=== PATIENT | female | born 1950 | race Caucasian/White ===

== ENCOUNTER 2024-10-28 15:34 | Emergency (ER) | payer MEDICARE, SELFPAY ==
--- NOTE | ~2024-10-28 | XR_ITS ---
XR finger 5th LT min 2V Ordering provider: George Cohne APRN History: . fall 5 days ago, 5th digit pain . Comparison: None. FINDINGS: BONES: Fracture at the base of the proximal phalanx of the left fifth finger with no significant disp lacement. Slight angulation is seen. JOINT SPACES: Narrowing of the proximal and distal interphalangeal joints. SOFT TISSUES: Normal. IMPRESSION: Fracture at the base of the proximal phalanx of the left thumb. Reviewed, dictated and finalized at location A.
--- OUTSIDE RECORDS SUMMARY | 2024-10-28 15:37 | XMS_ITS | Data Portability ---
Author Organization [facility] Address [address] [place] [address] 10 [address] [place] [address] Care Team Providers Care Speech Professor Name Role Phone NOLVIA BLACK Primary Care Provider Assessment Encounter Date Assessment Date Assessment LastModified by Organization Details LastModified Time 06/05/2022 06/05/2022 72-year-old female with left proximal humerus fracture. Plan: Continue in the sling for immobilization. Patient can come out for gentle range of motion fingers wrist elbow and pendulum exercises. We will start PT at this time. Demonstrated exercises for patient to do. Continue with rest and icing. Continue no use of her left arm. Discussed that swelling and dull aching pains or rest, elevate, ice, take [id number] Tylenol or pain medication. Patient agrees verbal consent was given for return to clinic 4 weeks x-rays left shoulder. Not available 06/05/2022 15:30:14 06/20/2022 06/20/2022 caring for her at home Patient presented to office today for their Medicare Annual Wellness Visit. Education was provided on healthy nutrition, including a diet rich in fruits and vegetables, minimizing simple carbohydrates, sale and saturated fats. Encouraged regular cardiovascular exercises such as walking at least 30 mins daily at least 5 times per week. Emphasized preventative health measures and educated patient on fall prevention and community-based lifestyle interventions to help reduce health risk and promote healthy living. printed and reviewed labs Not available 06/20/2022 12:56:04 07/10/2022 07/10/2022 72-year-old female with left proximal humerus fracture. Plan: Continue physical therapy at this time. Long discussion with the patient today about what to do about her shoulder. She would like to avoid surgery at all cost. Advised her that at 9 weeks post injury it is still too early to tell. Continue therapy to see if we can regain any motion and decrease her pain. If this is not better within the next month and we we will have to discuss further surgical intervention for her shoulder. Discussed that swelling and dull aching pains or rest, elevate, ice, take [id number] Tylenol or pain medication. Pain medication given to the patient. Patient agrees verbal consent was given for return to clinic 4 weeks x-rays left shoulder. Not available 07/10/2022 16:55:31 Plan of Treatment Reminders Order Date Submit Date Provider Last Modified By Organization Details Last Modified Time Details Appointments None recorded. Lab HbA1c (hemoglobin A1c), blood 2022 023 [facility] (Outpatient Lab), [address] [place], [address], 3 15:38:08 microalbumi n/creatinin e, mass ratio, urine 2022 023 [facility] (Outpatient Lab), [address] [place], [address], 3 15:38:08 CMP, serum or plasma 2022 023 [facility] (Outpatient Lab), [address] [place], [address], 3 15:38:06 CBC w/ auto diff 2022 023 [facility] (Outpatient Lab), [address] [place], [address], 3 15:38:08 TSH, serum or plasma 2022 023 [facility] (Outpatient Lab), [address] [place], [address], 3 15:38:07 magnesium, serum or plasma 2022 023 [facility] (Outpatient Lab), [address] [place], [address], 3 15:38:08 lipid panel, serum 2022 023 [facility] (Outpatient Lab), [address] [place], [address], 3 15:38:07 HbA1c (hemoglobin A1c), blood 2021 022 [facility] (Outpatient Lab), [address] [place], [address], 2 12:56:22 microalbumi n/creatinin e, mass ratio, urine 2021 022 [facility] (Outpatient Lab), [address] [place], [address], 2 12:56:22 CMP, serum or plasma 2021 022 [facility] (Outpatient Lab), [address] [place], [address], 2 12:56:23 CBC w/ auto diff 2021 022 [facility] (Outpatient Lab), [address] [place], [address], 2 12:56:22 TSH, serum or plasma 2021 022 [facility] (Outpatient Lab), [address] [place], [address], 2 12:56:23 magnesium, serum or plasma 2021 022 [facility] (Outpatient Lab), [address] [place], [address], 2 12:56:21 lipid panel, serum 2021 022 [facility] (Outpatient Lab), [address] [place], [address], 12:56:22 Referral physical therapist referral 2021 [facility], [address] [place], [address], 17:17:09 Procedures None recorded. Surgeries None recorded. Imaging XR, shoulder 2022 023 In-House Results, For Internal Use Only, Do Not Delete/merge, [id number] 3 14:32:23 XR, shoulder 2021 022 In-House Results, For Internal Use Only, Do Not Delete/merge, [id number] 16:55:33 XR, shoulder 2021 022 [facility] In-House Results, For Internal Use Only, Do Not Delete/merge, [id number] 16:50:29 Medication Orders rosuvastati n 40 mg tablet 2022 023 [facility] [place], [address], 3 15:38:01 magnesium 250 mg tablet 2022 023 [facility], [place], [address], 3 15:38:01 Trulicity 3 mg/0.5 mL subcutaneou s pen injector 2022 023 [facility], [place], [address], 3 15:37:58 duloxetine 60 mg capsule,del ayed release 2022 023 [facility], [place], [address], 3 15:37:58 omeprazole 20 mg capsule,del ayed release 2022 023 [facility], [facility], [place], [address], 3 15:37:59 losartan 100 mg tablet 2022 023 [facility], [facility], [place], [address], 3 15:38:03 levothyroxi ne 100 mcg tablet 2022 023 [facility], [facility], [place], [address], 3 15:37:59 Cymbalta 60 mg capsule,del ayed release 2021 022 [facility], [address] [place] [address], [address], 12:56:24 Patient TargetsNo targets recorded. Patient Instructions Encounter Date Encounter Id Patient Instructions Last Modified By Organization Details Last Modified Time 06/05/2022 [id number] body mass index: care instructions Not available 06/05/2022 15:30:15 learning about obesity Not available 06/05/2022 15:30:15 When You Want to Lose Weight: Care Instructions Not available 06/05/2022 15:30:16 06/20/2022 [id number] advance directives: care instructions [email or web address] Not available 06/20/2022 12:56:16 body mass index: care instructions [email or web address] Not available 06/20/2022 12:56:16 learning about obesity [email or web address] Not available 06/20/2022 12:56:16 When You Want to Lose Weight: Care Instructions [email or web address] Not available 06/20/2022 12:56:16 Learning About Benefits of Quitting Smoking [email or web address] Not available 06/20/2022 12:56:16 Quitting Tobacco : Care Instructions Not available 06/20/2022 12:56:16 Checklist Medicare Preventive Services [email or web address] Not available 06/20/2022 12:56:16 07/10/2022 [id number] body mass index: care instructions Not available 07/10/2022 16:55:32 learning about obesity Not available 07/10/2022 16:55:33 When You Want to Lose Weight: Care Instructions Not available 07/10/2022 16:55:33 08/07/2022 [id number] learning about healthy weight Not available 08/07/2022 14:32:22 body mass index: care instructions Not available 08/07/2022 14:32:23 learning about obesity Not available 08/07/2022 14:32:22 When You Want to Lose Weight: Care Instructions Not available 08/07/2022 14:32:22 12/31/2022 [id number] body mass index: care instructions [email or web address] Not available 12/31/2022 15:37:55 learning about obesity Not available 12/31/2022 15:37:54 When You Want to Lose Weight: Care Instructions [email or web address] Not available 12/31/2022 15:37:55 Learning About Benefits of Quitting Smoking [email or web address] Not available 12/31/2022 15:37:54 Quitting Tobacco : Care Instructions [email or web address] Not available 12/31/2022 15:37:54 Reason for Referral Physical Therapist Referral for Closed fracture of proximal left humerus Referring Physician: Yadira Silverman, Orthopedic Surgery, Encounter Date: 06/05/2022 Results Created Date Observation Date Name Description Value Unit Range Abnormal Flag Note LastModifiedBy Organization Detail LastModifiedTime 06/05/20 22 06/05/2022 COMPL ETE BLOOD COUNT AUTO DIFF leukocytes [#/volume] in blood by automated count 8.8 X10^3 /uL 4.5-11 .0 normal Not Available [facility] (Outpatient Lab) [address] [place], [address], 06/05/2022 16:18:09 06/05/20 22 06/05/2022 COMPL ETE BLOOD COUNT AUTO DIFF erythrocytes [#/volume] in blood by automated count 4.71 x10^6 /uL 3.8-5. 2 normal Not Available [facility] (Outpatient Lab) [address] [place], [address], 06/05/2022 16:18:09 06/05/20 22 06/05/2022 COMPL ETE BLOOD COUNT AUTO DIFF hemoglobin [mass/volume ] in blood 14.2 gm/dL 11.7-1 6.1 normal Not Available [facility] (Outpatient Lab) [address] [place], [address], 06/05/2022 16:18:09 06/05/20 22 06/05/2022 COMPL ETE BLOOD COUNT AUTO DIFF hematocrit [volume fraction] of blood 41.8 % 35.0-4 7.0 normal Not Available [facility] (Outpatient Lab) [address] [place], [address], 06/05/2022 16:18:09 06/05/20 22 06/05/2022 COMPL ETE BLOOD COUNT AUTO DIFF MCV [entitic volume] by automated count 88.7 fL 81.0-1 02.0 normal Not Available [facility] (Outpatient Lab) [address] [place], [address], 06/05/2022 16:18:09 06/05/20 22 06/05/2022 COMPL ETE BLOOD COUNT AUTO DIFF MCH [entitic mass] by automated count 30.1 pg 27.0-3 5.0 normal Not Available [facility] (Outpatient Lab) [address] [place], [address], 06/05/2022 16:18:09 06/05/20 22 06/05/2022 COMPL ETE BLOOD COUNT AUTO DIFF MCHC [mass/volume ] by automated count 34.0 g/dL 32.0-3 6.0 normal Not Available [facility] (Outpatient Lab) [address] [place], [address], 06/05/2022 16:18:09 06/05/20 22 06/05/2022 COMPL ETE BLOOD COUNT AUTO DIFF erythrocyte distribution width [entitic volume] by automated count 13.9 % 11.5-1 4.5 normal Not Available [facility] (Outpatient Lab) [address] [place], [address], 06/05/2022 16:18:09 06/05/20 22 06/05/2022 COMPL ETE BLOOD COUNT AUTO DIFF platelets [#/volume] in blood by automated count 246 K/mm3 130-40 0 normal Not Available [facility] (Outpatient Lab) [address] [place], [address], 06/05/2022 16:18:09 06/05/20 22 06/05/2022 COMPL ETE BLOOD COUNT AUTO DIFF platelet mean volume [entitic volume] in blood by automated count 10.8 fL 7.4-10 .4 high Not Available [facility] (Outpatient Lab) [address] [place], [address], 06/05/2022 16:18:09 06/05/20 22 06/05/2022 COMPL ETE BLOOD COUNT AUTO DIFF neutrophils/ 100 leukocytes in blood by automated count 65.8 % 50.0-7 0.0 normal Not Available [facility] (Outpatient Lab) [address] [place], [address], 06/05/2022 16:18:09 06/05/20 22 06/05/2022 COMPL ETE BLOOD COUNT AUTO DIFF lymphocytes/ 100 leukocytes in blood by automated count 21.9 % 18.0-4 2.0 normal Not Available [facility] (Outpatient Lab) [address] [place], [address], 06/05/2022 16:18:09 06/05/20 22 06/05/2022 COMPL ETE BLOOD COUNT AUTO DIFF monocytes/10 0 leukocytes in blood by automated count 7.9 % 2.0-11 .0 normal Not Available [facility] (Outpatient Lab) [address] [place], [address], 06/05/2022 16:18:09 06/05/20 22 06/05/2022 COMPL ETE BLOOD COUNT AUTO DIFF eosinophils/ 100 leukocytes in blood by automated count 3.5 % 1.0-5. 0 normal Not Available [facility] (Outpatient Lab) [address] [place], [address], 06/05/2022 16:18:09 06/05/20 22 06/05/2022 COMPL ETE BLOOD COUNT AUTO DIFF basophils/10 0 leukocytes in blood by automated count 0.7 % 0.0-2. 0 normal Not Available [facility] (Outpatient Lab) [address] [place], [address], 06/05/2022 16:18:09 06/05/20 22 06/05/2022 COMPL ETE BLOOD COUNT AUTO DIFF immature granulocytes /100 leukocytes in blood by automated count 0.2 % 0-1 normal Not Available [facility] (Outpatient Lab) [address] [place], [address], 06/05/2022 16:18:09 06/05/20 22 06/05/2022 COMPL ETE BLOOD COUNT AUTO DIFF nucleated erythrocytes [#/volume] in blood by automated count 0.00 K/mm3 Not Available [facility] (Outpatient Lab) [address] [place], [address], 06/05/2022 16:18:09 06/05/20 22 06/05/2022 COMPL ETE BLOOD COUNT AUTO DIFF nucleated erythrocytes /100 leukocytes [ratio] in blood by automated count 0.0 /100W BC 0-8 normal Not Available [facility] (Outpatient [facility]) [address] [place], [address], 06/05/2022 16:18:09 06/05/20 22 06/05/2022 COMPL ETE BLOOD COUNT AUTO DIFF neutrophil count 5.80 x10^3 /uL 1.4-6. 5 normal Not Available [facility] (Outpatient [facility]) [address] [place], [address], 06/05/2022 16:18:09 06/05/20 22 06/05/2022 COMPL ETE BLOOD COUNT AUTO DIFF lymphocytes [#/volume] in blood by automated count 1.93 x10^3 /uL 1.2-3. 4 normal Not Available [facility] (Outpatient [facility]) [address] [place], [address], 06/05/2022 16:18:09 06/05/20 22 06/05/2022 COMPL ETE BLOOD COUNT AUTO DIFF monocytes [#/volume] in blood by automated count 0.70 x10^3 /uL 0.11-0 .59 high Not Available [facility] (Outpatient Lab) [address] [place], [address], 06/05/2022 16:18:09 06/05/20 22 06/05/2022 COMPL ETE BLOOD COUNT AUTO DIFF eosinophils [#/volume] in blood by automated count 0.31 x10^3 /uL 0.0-0. 5 normal Not Available [facility] (Outpatient Lab) [address] [place], [address], 06/05/2022 16:18:09 06/05/20 22 06/05/2022 COMPL ETE BLOOD COUNT AUTO DIFF basophils [#/volume] in blood by automated count 0.06 x10^3 /uL 0.00-0 .2 normal Not Available [facility] (Outpatient Lab) [address] [place], [address], 06/05/2022 16:18:09 06/05/20 22 06/05/2022 COMPL ETE BLOOD COUNT AUTO DIFF immature granulocytes [#/volume] in blood by automated count 0.02 x10^3 /uL 0-0.2 normal Not Available [facility] (Outpatient Lab) [address] [place], [address], 06/05/2022 16:18:09 06/05/20 22 06/05/2022 MICRO ALBUM IN CREAT ININE RATIO microalbumin [mass/volume ] in urine by detection limit <= 1.0 mg/L 16.20 mg/L Not Available [facility] (Outpatient Lab) [address] [place], [address], 06/05/2022 16:28:21 06/05/20 22 06/05/2022 MICRO ALBUM IN CREAT ININE RATIO creatinine [mass/volume ] in urine 221.8 mg/dL Effec tive 6, A nellie ed metho d for Creat inine is in use. Not Available [facility] (Outpatient Lab) [address] [place], [address], 06/05/2022 16:28:21 06/05/20 22 06/05/2022 MICRO ALBUM IN CREAT ININE RATIO microalbumin /creatinine [mass ratio] in urine 7.3 mg/g_ cre <30 Not Available [facility] (Outpatient Lab) [address] [place], [address], 06/05/2022 16:28:21 06/05/20 22 06/05/2022 GLYCA SHADIA HEMOG LOBIN A1C hemoglobin A1C/hemoglob in.total in blood 6.3 % 4.8-6. 0 high Not Available [facility] (Outpatient Lab) [address] [place], [address], 06/05/2022 16:40:02 06/05/20 22 06/05/2022 CMP sodium [moles/volum e] in serum or plasma 139 mmol/ L 136-14 5 normal Not Available [facility] (Outpatient Lab) [address] [place], [address], 06/05/2022 16:50:05 06/05/20 22 06/05/2022 CMP potassium [moles/volum e] in serum or plasma 4.0 mmol/ L 3.5-5. 1 normal Not Available [facility] (Outpatient Lab) [address] [place], [address], 06/05/2022 16:50:05 06/05/20 22 06/05/2022 CMP chloride [moles/volum e] in serum or plasma 104 mmol/ L 98-107 normal Not Available [facility] (Outpatient Lab) [address] [place], [address], 06/05/2022 16:50:05 06/05/20 22 06/05/2022 CMP carbon dioxide, total [moles/volum e] in serum or plasma 28.2 mmol/ L 21-32 normal Not Available [facility] (Outpatient Lab) [address] [place], [address], 06/05/2022 16:50:05 06/05/20 22 06/05/2022 CMP anion gap in serum or plasma 6.8 mmol/ L [facility] Labor atory estab lishe d refer ence range for Anion Gap is 4.9-1 1.0 mmol/ L based on our patie nt popul ation and using Sieme ns Dimen elisa instr ument ation . Not Available [facility] (Outpatient Lab) [address] [place], [address], 06/05/2022 16:50:05 06/05/20 22 06/05/2022 CMP urea nitrogen [mass/volume ] in serum or plasma 14 mg/dL 7-18 normal Not Available [facility] (Outpatient [facility]) [address] [place], [address], 06/05/2022 16:50:05 06/05/20 22 06/05/2022 CMP creatinine [mass/volume ] in serum or plasma 0.73 mg/dL 0.55-1 .02 normal Not Available [facility] (Outpatient Lab) [address] [place], [address], 06/05/2022 16:50:05 06/05/20 22 06/05/2022 CMP protein [mass/volume ] in serum or plasma 7.0 g/dL 6.4-8. 2 normal Not Available [facility] (Outpatient Lab) [address] [place], [address], 06/05/2022 16:50:05 06/05/20 22 06/05/2022 CMP albumin [mass/volume ] in serum or plasma 3.5 g/dL 3.4-5. 0 normal Not Available [facility] (Outpatient Lab) [address] [place], [address], 06/05/2022 16:50:05 06/05/20 22 06/05/2022 CMP globulin [mass/volume ] in serum by calculation 3.5 g/dL 2.7-4. 2 normal Not Available [facility] (Outpatient Lab) [address] [place], [address], 06/05/2022 16:50:05 06/05/20 22 06/05/2022 CMP albumin/glob ulin [mass ratio] in serum or plasma 1.0 1.1-2. 0 low Not Available [facility] (Outpatient Lab) [address] [place], [address], 06/05/2022 16:50:05 06/05/20 22 06/05/2022 CMP bilirubin.to lisa [mass/volume ] in serum or plasma 0.43 mg/dL 0.20-1 .00 normal Not Available [facility] (Outpatient Lab) [address] [place], [address], 06/05/2022 16:50:05 06/05/20 22 06/05/2022 CMP alkaline phosphatase [enzymatic activity/vol ume] in serum or plasma 123 U/L 46-116 high Not Available [facility] (Outpatient Lab) [address] [place], [address], 06/05/2022 16:50:05 06/05/20 22 06/05/2022 CMP aspartate aminotransfe rase [enzymatic activity/vol ume] in serum or plasma 13 U/L 15-37 low Not Available [facility] (Outpatient Lab) [address] [place], [address], 06/05/2022 16:50:05 06/05/20 22 06/05/2022 CMP calcium [mass/volume ] in serum or plasma 9.1 mg/dL 8.5-10 .1 normal Not Available [facility] (Outpatient Lab) [address] [place], [address], 06/05/2022 16:50:05 06/05/20 22 06/05/2022 CMP glucose [mass/volume ] in serum or plasma 110 mg/dL 70-110 normal Not Available [facility] (Outpatient Lab) [address] [place] [address], [address], 06/05/2022 16:50:05 06/05/20 22 06/05/2022 CMP alanine aminotransfe rase [enzymatic activity/vol ume] in serum or plasma 18 U/L 14-59 normal Not Available [facility] (Outpatient Lab) [address] [place] [address], [address], 06/05/2022 16:50:05 06/05/20 22 06/05/2022 CMP glomerular filtration rate/1.73 sq M.predicted [volume rate/area] in serum, plasma or blood by creatinine-b ased formula (MDRD) >=60 Calcu latio n is based on serum creat inine , age, gende r and race using the MDRD equat ion. The estim ated GFR calcu latio n alone can be used to diagn ose and class jerri patie nts in stage s 3,4 and 5 of chron ic kidne y disea se as indic ated by an estim ated GFR <= 59ml/ min/1 .73m2 . The diagn osis of patie nts in stage s 1 or 2 is prima rily based on signs of kidne y damag e, such as the prese nce of micro album inuri a. All eGFR value s great er than 59 will be repor shadia as >=60 ml/mi n/1.7 3m2 follo wing NKF and NKDEP recom menda tions . For more infor fuad navarrete e refer to the Shelia mahan Kidregina y Disea se Educa tion Progr am at: http: //www .nkde p.nih .gov. Not Available [facility] (Outpatient Lab) [address] [place] [address], [address], 06/05/2022 16:50:05 06/05/20 22 06/05/2022 LIPID PROFI LE cholesterol [mass/volume ] in serum or plasma 87 mg/dL 0-200 normal Not Available [facility] (Outpatient Lab) [address] [place] [address], [address], 06/05/2022 16:50:06 06/05/20 22 06/05/2022 LIPID PROFI LE triglyceride [mass/volume ] in serum or plasma 98 mg/dL 30-200 normal Not Available [facility] (Outpatient Lab) [address] [place] [address], [address], 06/05/2022 16:50:06 06/05/20 22 06/05/2022 LIPID PROFI LE cholesterol in HDL [mass/volume ] in serum or plasma 49 mg/dL 35-60 normal Not Available [facility] (Outpatient Lab) [address] [place] [address], [address], 06/05/2022 16:50:06 06/05/20 22 06/05/2022 LIPID PROFI LE cholesterol in LDL [mass/volume ] in serum or plasma by calculation 18 mg/dL Not Available [facility] (Outpatient Lab) [address] [place] [address], [address], 06/05/2022 16:50:06 06/05/20 22 06/05/2022 MAGNE SIUM magnesium [mass/volume ] in serum or plasma 1.7 mg/dL 1.8-2. 4 low Not Available [facility] (Outpatient Lab) [address] [place], [address], 06/05/2022 16:50:07 06/05/20 22 06/05/2022 THYRO ID STIMU LATIN G HORMO NE thyrotropin [units/volum e] in serum or plasma 1.766 uIU/m L 0.358- 3.74 normal PLEAS E NOTE: The inges tion of dieta ry suppl ement s conta ining exces sive amoun ts of bioti n may false ly decre ase TSH resul ts. Not Available [facility] (Outpatient Lab) [address] [place] [address], [address], 06/05/2022 16:50:07 06/05/20 22 06/05/2022 FREE THYRO XINE (T4) thyroxine (T4) free [mass/volume ] in serum or plasma 1.32 NG/dL 0.76-1 .46 normal PLEAS E NOTE: The inges tion of dieta ry suppl ement s conta ining exces sive amoun ts of bioti n may false ly incre ase free T4 resul ts. Not Available [facility] (Outpatient Lab) [address] [place] [address], [address], 06/05/2022 16:50:08 06/05/20 22 06/05/2022 VITAM IN B12 AND FOLAT E cobalamin (vitamin B12) [mass/volume ] in serum or plasma 266 pg/mL 193-98 6 normal PLEAS E NOTE: The inges tion of dieta ry suppl ement s conta ining exces sive amoun ts of bioti n may false ly incre ase B12 resul ts. Not Available [facility] (Outpatient Lab) [address] [place] [address], [address], 06/05/2022 16:57:12 06/05/20 22 06/05/2022 VITAM IN B12 AND FOLAT E folate [mass/volume ] in serum or plasma 14.9 NG/mL 8.6-58 .9 normal PLEAS E NOTE: The inges tion of dieta ry suppl ement s conta ining exces sive amoun ts of bioti n may false ly incre ase folat e resul ts. Not Available [facility] (Outpatient Lab) [address] [place], [address], 06/05/2022 16:57:12 06/05/20 22 06/05/2022 VITAM IN D 25-HY DROXY 25-hydroxyvi tamin D3+25-hydrox yvitamin D2 [mass/volume ] in serum or plasma 46.8 NG/mL 30.0-1 00.0 Vitam in D defic iency has been defin ed by the Insti tute of Medic ine and an Endoc rine Socie ty pract ice guide line as a level of serum 25-OH vitam in D less than 20 ng/mL (1,2) . The Endoc rine Socie ty went on to furth er defin e vitam in D insuf ficie ncy as a level betwe en 21 and 29 ng/mL (2). 1. IOM (Inst itute of Medic ine). 2009. Dieta ry refer ence intak es for calci um and D. Lior lopez [place]: The Natio nal [facility] Press . 2. Abida song [place], Isidro german [place], Medardo off-F maria luisa i JUAREZ, et al. Evalu ation , treat ment, and preve ntion of vitam in D defic iency : an Endoc rine Socie ty clini jeffrey pract ice guide line. JCEM. 2010; 96(7) :1911 -30. Perfo rmed at: 01 - [facility] [id number] [place] [address] Lab Direc tor: Jc chauhan PhD, Phone : [phone] Not Available [facility] (Outpatient Lab) [address] [place], [address], 06/08/2022 06:50:35 05/15/20 22 05/15/2022 XR, sabine jennifer No observ ation record ed. In-House Results For Internal Use Only, Do Not Delete/merge, [id number] 05/15/2022 12:05:16 06/05/20 22 06/05/2022 XR, shoul jennifer No observ ation record ed. 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 This scan was perfor med with dose reduct ion protoc ol follow ing the ALARA princi ple. Low-do se screen ing CT of the chest is perfor med accord ing to the low-do se screen ing protoc ol. 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 No suspic ious pulmon nancy nodule s are demons trated . I would recomm end follow -up low-do se screen ing CT in 12 months . IMPRES ELISA: Lung-R ADS 1 - Negati ve. No nodule s and defini tely benign nodule s. Contin ue annual screen ing with LDCT in 12 months . *Lung- RADS versio n 1.1 (nellie ed ) Review ed and electr onical ly signed by: Abhay Conrad MD REPORT STATUS : Signed DATE TRANSC RIBED: TRANSC RIPTIO NIST: PS DICTAT ION DATE AND TIME: 154 ELECTR ONIC SIGNAT URE DATE AND TIME: 1549 cc: NOLVIA BLACK MD [email or web address] [facility] [address] [place] [address], [address], 07/04/2022 12:01:24 07/10/20 22 07/10/2022 XR, shoul jennifer No observ ation record ed. In-House Results For Internal Use Only, Do Not Delete/merge, [id number] 07/10/2022 16:55:56 08/07/19 23 08/07/2022 XR, shoul jennifer No observ ation record ed. In-House Results For Internal Use Only, Do Not Delete/merge, [id number] 08/07/2022 14:32:20 10/04/19 23 06/01/2022 bone densi ty No observ ation record ed. [facility] [id number] , [place], [address], 10/03/2022 13:50:31 Result Notes None recorded. Problems Name Problem SNOMED Code Status Onset Date Resolution Date Notes Provider Name and Address Organization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 APRN [facility] [address] [address] 01/25/2019 09:47:10 01/25/2019 10:58:06 Screening for malignant neoplasm of colon 496193073 Z12.11 [id number] Nolvia Black MD [facility] [address] [address] 03/05/2019 09:02:46 03/05/2019 10:18:58 Essential hypertension 91465315 I10 controlled on multiple medication s Hyperlipidemia 15062944 E78.2 on rosuvastat in 20mg daily Diabetes mellitus 571476 09 E11.9 on victoza and glimepirid eintoleran t of metformin Hypothyroidism 90934351 E03.9 on levothyrox ine 100mcg daily Psoriasis 4914144 L40.9 uses steroid ointment in her earslocate d only in bilateral ears Osteoporosis 90191596 M8 1.0 requesting bone density records from [facility] Obstructiv e sleep apnea syndrome 02943122 G47.33 wears cpap nightly Adult heal th examination 452495867 Z00.00 mammogram normal 10/30h/o hysterecto my with normal pathologyc olonoscopy scheduled for next weekbone density done 10/1949 year smoking history quit 10/30--she is considerin g CT scan for lung cancerAAA screen is ordered through [facility] [id number] Nolvia Black MD [facility] [address] [place] [address] [address] [place] [address] 07/05/2019 10:13:47 07/05/2019 11:24:14 Diabetes mellitus 84411897 E11.9 on victoza and glimepirid eintoleran t of metformina 1c 7.6 on 03/05/19foo t examinatio n 07/05/19 showed sensation loss in ball of footeye examinatio n 06/2019 Essential hypertension 97326230 I10 controlled on multiple medication sshe wants to minimize medication swill try stopping spironolac tone and she will monitor her blood pressure at home Mixed hyperlipidemia 267 812399 E78.2 on rosuvastat in 20mg dailyLDL 20 on 03/05/19 Hepatitis C screening 39 3128008 Z11.59 Age relate d macular degeneration 128527753 H35.30 wet on left side and getting injections Hyperlipidemia 39298842 E78.2 on rosuvastat in 20mg daily Hypothyroidism 50165925 E03.9 on levothyrox ine 100mcg dailythyro id studies normal 02/2019 Psoriasis 1272729 L40.9 uses steroid ointment in her earslocate d only in bilateral ears Osteoporosis 49275176 M8 1.0 [facility] 03/05/19 Obstructiv e sleep apnea syndrome 56938896 G47.33 wears cpap nightly Adult [facility] th examination 676142360 Z00.00 mammogram normal 10/30h/o hysterecto my with normal pathologyc olonoscopy 04/09/19 normal, repeat in 10 yearsbone density done 10/1949 year smoking history quit 10/30--she is considerin g CT scan for lung cancerAAA screen is ordered through [facility] Chronic ob structive pulmonary disease 48004636 J44.9 [id number] MD [place] [facility] [address] [place] [address] [address] 09/22/2019 13:46:12 09/22/2019 14:14:13 History of total knee arthroplasty 1914273843 105 Z96.652 69-year-ol d female left total knee arthroplas ty couple years ago doing well no issues or problems. Plan activity as tolerated. Follow-up 1 year repeat evaluation routine checkup left total knee. [id number] Arnav [facility] [address] [place] [address] 11/29/2019 11:46:35 11/29/2019 14:44:59 Eczema of external auditory canal 52260176 H60.543 Left side much worse than right Impacted cerumen 4970430 6 H61.23 Right side worse than left today [id number] MD [facility] [address] [place] [address] [address] 01/07/2020 11:58:58 01/07/2020 13:14:39 Diabetes mellitus 17797365 E11.9 on victoza and glimepirid eintoleran t of metformina 1c 7.6 on 03/05/19a1c 8.1 on 01/05/2020, she has been eating more sweets and missing doses of victozafoo t examinatio n 07/05/19 showed sensation loss in ball of footeye examinatio n 06/2019 Essential hypertension 12349028 I10 controlled on amlodipine , carvedilol , clonidine, and losartan Mixed hyperlipidemia 267 581896 E78.2 on rosuvastat in 20mg dailyLDL 24 01/05/2020 Age relate d macular degeneration 373548817 H35.30 wet on left side and getting injections Hyperlipidemia 17784316 E78.2 on rosuvastat in 20mg dailyLDL 24 on 01/05/2020 Hypothyroidism 68524107 E03.9 on levothyrox ine 100mcg dailythyro id studies normal 02/2019 Psoriasis 6747584 L40.9 uses steroid ointment in her earslocate d only in bilateral ears Osteoporosis 51123392 M8 1.0 [facility] 03/05/19 Obstructiv e sleep apnea syndrome 41463816 G47.33 wears cpap nightly Adult heal th examination 593840236 Z00.00 mammogram normal 10/30, [facility] with normal pathologyc olonoscopy 04/09/19 normal, repeat in 10 yearsbone density done 10/30 showed osteopenia 50 year smoking history quit 10/30--she is considerin g CT scan for lung cancerAAA screen is ordered through [facility] Chronic ob structive pulmonary disease 10653226 J44.9 PFTs 07/09/2019 :Optimal study for interpreta tion. Spirometry shows mild obstructio n. There is no significan t bronchodil ator response. Diffusion Capacity is mildly reduced. No comparison studies. discussed smoking cessation, restart chantix Smoker 59028440 F17.200 former smoker but she resumed with recent1/2 PPD restartedd iscussed smoking cessation for 3 minutes Screening for malignant neoplasm of breast 331044659 Z12.31 Depressive disorder 3548 9007 F32.9 PHQ-9 score 14 on cymbalta 01/07/2020s top cymbalta and start sertraline titrating up as neededshe declined therapy at this time [id number] Nolvia Black MD [facility] [address] [place] [address] 03/03/2020 10:32:52 03/03/2020 11:52:32 Depressive disorder 83265047 F32.9 PHQ-9 score 14 on cymbalta 01/07/2020s ertraline 50mg daily helping alot Diabetes mellitus 329412 09 E11.9 on victoza and glimepirid eintoleran t of metformina 1c 7.6 on 03/05/19a1c 8.1 on 01/05/2020, she has been eating more sweets and missing doses of victoza about 3 daysfoot examinatio n 07/05/19 showed sensation loss in ball of footeye examinatio n 06/2019 will switch to ozempic if insurance covers due to once weekly dosing Essential hypertension 32667406 I10 controlled on amlodipine , carvedilol , clonidine, and losartan Mixed hyperlipidemia 267 522396 E78.2 on rosuvastat in 20mg dailyLDL 24 01/05/2020 Age relate d macular degeneration 904753012 H35.30 wet on left side and getting injections Hypothyroidism 88085235 E03.9 on levothyrox ine 100mcg dailythyro id studies normal 02/2019 Psoriasis 7136903 L40.9 uses steroid ointment in her earslocate d only in bilateral ears Obstructiv e sleep apnea syndrome 85400130 G47.33 wears cpap nightly Adult heal th examination 404638494 Z00.00 mammogram normal 02/09/2020h /o hysterecto my with normal pathologyc olonoscopy 04/09/19 normal, repeat in 10 yearsbone density done 10/30 showed osteopenia hep C negative 0 year smoking history quit 10/30--she is considerin g CT scan for lung cancer but still wants to waitAAA [facility] Chronic ob structive pulmonary disease 06448543 J44.9 PFTs 07/09/2019 :Optimal study for interpreta tion. Spirometry shows mild obstructio n. There is no significan t bronchodil ator response. Diffusion Capacity is mildly reduced. No comparison studies. discussed smoking cessation, restart chantix Smoker 78599756 F17.200 former smoker but she resumed with recent stress1/2 PPD - 1 PPDchantix ordered Osteopenia 073665132 M85 .80 Vit D normal 03/05/19she is on vit D/calcium bone density 2018, will do next year Administra tion of diphtheria, pertussis, and tetanus vaccine 476889761 Z23 [id number] Nolvia Black MD [facility] [address] [place] [address] [address] [place] [address] 09/04/2020 11:45:10 09/04/2020 12:36:42 Adult health examination 335659974 Z00.00 mammogram normal 02/09/2020h /o hysterecto my with normal pathologyc olonoscopy 04/09/19 normal, repeat in 10 yearsbone density done 10/30 showed osteopenia hep C negative 01/05/20205 0 year smoking history quit 10/30. she declines lung cancer screeningA AA screen is ordered through [facility]. she states they couldn't see through her fat and declines more testing Screening for cardiovascular system disease 952937438 Z13.6 lipid ordered Advance care planning 71 1195514 Z71.89 Depression screening 171 642252 Z13.31 positive Essential hypertension 27238294 I10 controlled on amlodipine , carvedilol , clonidine, and losartan Chronic pain syndrome 37 0320017 G89.4 Depressive disorder 3548 9007 F32.9 continue sertraline and cymbaltash e declines therapywe discussed going outside more and planning a girls trip which she states helps the mostshe denies suicidal ideation/h omicidal Diabetes mellitus 195032 09 E11.9 on victoza and glimepirid eintoleran t of metformina 1c 7.6 on 03/05/19a1c 8.1 on 01/05/2020, she has been eating more sweets and missing doses of victoza about 3 daysfoot examinatio n 07/05/19 showed sensation loss in ball of footeye examinatio n 06/2019ins urance wouldn't cover ozempic wants to see if trulicity is covered bc she can't remember victoza daily Mixed hyperlipidemia 267 205401 E78.2 on rosuvastat in 20mg dailyLDL 24 01/05/2020 Age relate d macular degeneration 089350216 H35.30 wet on left side and getting injections [facility] [place] is diong her injections Hypothyroidism 49404626 E03.9 on levothyrox ine 100mcg dailythyro id studies normal 02/2019 Psoriasis 4440158 L40.9 uses steroid ointment in her earslocate d only in bilateral ears Obstructiv e sleep apnea syndrome 72068090 G47.33 wears cpap nightly Chronic ob structive pulmonary disease 02463646 J44.9 PFTs 07/09/2019 :Optimal study for interpreta tion. Spirometry shows mild obstructio n. There is no significan t bronchodil ator response. Diffusion Capacity is mildly reduced. No comparison studies. discussed smoking cessation, restart chantix Smoker 50103547 F17.200 former smoker but she resumed with recent stressdown to less than 1/2 PPDshe tried chantix which worked for 3 months but no longer working Osteopenia 468916622 M85 .80 Vit D normal 03/05/19she is on vit D/calcium bone density 2017, will do next year Gastroesop hageal reflux disease without esophagitis 940401395 K21.9 on PPI [id number] CLAUDE THURSTON MD [facility] [address] [place] [address] 09/25/2020 13:44:50 09/25/2020 14:36:39 History of total knee arthroplasty 8040281428 105 Z96.652 70-year-ol d female 3 years out from left total knee arthroplas ty doing well does have some laxity of the MCL and some clicking associated with this. Implants with no issues. Plan routine follow-up 1 year repeat evaluation x-rays left knee. [id number] KEREN NESBITT PA-C [facility] [address] [place] [address] 01/19/2021 11:30:41 01/19/2021 13:36:30 Type 2 diabetes mellitus 05821090 E11.9 Discussed patient with PCP Dr. Walters increase Trulicity from 0.75mg weekly to 1.5mg weeklyF/u with Dr. Black as scheduled in February Patient will come in Friday when her next injection is due to make sure she is administer ing properly [id number] Nolvia Black MD [facility] [address] [place] [address] 02/21/2021 14:39:54 02/21/2021 15:50:56 Depressive disorder 15322061 F32.9 continue sertraline and cymbaltash e declines therapywe discussed going outside more and planning a girls trip which she states helps the mostshe denies suicidal ideation/h omicidal Mixed hyperlipidemia 267 851419 E78.2 on rosuvastat in 40mg dailyLDL 24 01/05/2020L DL 40 on 09/04/2020 Gastroesop hageal reflux disease without esophagitis 154640645 K21.9 on PPI Hypomagnesemia 767713629 E83.42 magnesium 1.4 on 09/04/2020 Essential hypertension 97756727 I10 controlled on amlodipine , carvedilol , clonidine, and losartan Hypothyroidism 59655864 E03.9 on levothyrox ine 100mcg dailythyro id studies normal 02/2019thyr oid studies normal 09/04/2020 Diabetes mellitus 221499 09 E11.9 on victoza and glimepirid eintoleran t of metformina 1c 7.6 on 03/05/19a1c 8.1 on 01/05/2020, she has been eating more sweets and missing doses of victoza about 3 [id number] 8.6 on 09/04/2020f oot examinatio n 07/05/19 showed sensation loss in ball of footeye examinatio n 06/2019on trulicity and doing well a1c today Chronic pain syndrome 37 0223983 G89.4 on cymblata and diclofenac Adult heal th examination 424378462 Z00.00 mammogram normal 02/09/2020 wants to do every other yearh/o hysterecto my with normal pathologyc olonoscopy 04/09/19 normal, repeat in 10 yearsbone density done 10/30 showed osteopenia hep C negative 0 year smoking history. low dose lung cat scan 09/14/2020 Age relate d macular degeneration 203728632 H35.30 wet on left side and getting injections [facility] [place] is diong her injections Psoriasis 1692047 L40.9 uses steroid ointment in her earslocate d only in bilateral ears Obstructiv e sleep apnea syndrome 68865700 G47.33 wears cpap nightly Chronic ob structive pulmonary disease 35042921 J44.9 PFTs 07/09/2019 :Optimal study for interpreta tion. Spirometry shows mild obstructio n. There is no significan t bronchodil ator response. Diffusion Capacity is mildly reduced. No comparison studies. discussed smoking cessationd iscussed inhalers Smoker 36668591 F17.200 former smoker but she resumed with recent stressdown to less than 1/2 PPDshe tried chantix which worked for 3 months but no longer working Osteopenia 957557037 M85 .80 Vit D normal 03/05/19she is on vit D/calcium bone density 2018, will do next year Coronary arteriosclerosis 68125445 I25.10 CT lungs 09/14/2020:I MPRESSION: Lung-RADS 1 - Negative. No nodules and definitely benign nodules. Continue annual screening with LDCT in 12 months. *Lung-RADS version 1.1 (revised ) Extensive coronary artery calcificat ions.she is on aspirin and statinwork ing on DM2 control and BP control Increased body mass index 49696655 Z71.3 BMI 34.9 on 02/21/2021 Nicotine d ependence with current use 241290236 F17.272 [id number] Nolvia Black MD [facility] [address] [place] [address] 06/26/2021 11:48:29 06/26/2021 12:49:16 Essential hypertension 13355331 I10 controlled on amlodipine , carvedilol , clonidine, and losartan Hypothyroidism 15900753 E03.9 on levothyrox ine 100mcg dailythyro id studies normal 02/21/2021 Depressive disorder 3548 9007 F32.9 continue sertraline and cymbaltahe r isn't doing wellshe declines therapyshe did recently [facility] o[facility] Mixed hyperlipidemia 267 294263 E78.2 on rosuvastat in 40mg dailyLDL 24 on 02/21/2021 Gastroesop hageal reflux disease without esophagitis 524239148 K21.9 on PPI Hypomagnesemia 388591741 E83.42 magnesium 1.7 on 02/21/2021 Chronic pain syndrome 37 2062055 G89.4 on cymbalta and diclofenac Adult heal th examination 489287936 Z00.00 mammogram normal 02/09/2020 wants to do every other yearh/o hysterecto my with normal pathologyc olonoscopy 04/09/19 normal, repeat in 10 yearsbone density done 10/30 showed osteopenia hep C negative 0 year smoking history. low dose lung cat scan 09/14/2020 Age relate d macular degeneration 674995888 H35.30 wet on left side and getting injections Retinal center in [place], [place] is diong her injections Psoriasis 3475454 L40.9 uses steroid ointment in her earslocate d only in bilateral ears Obstructiv e sleep apnea syndrome 08158132 G47.33 wears cpap nightly Chronic ob structive pulmonary disease 87541290 J44.9 PFTs 07/09/2019 :Optimal study for interpreta tion. Spirometry shows mild obstructio n. There is no significan t bronchodil ator response. Diffusion Capacity is mildly reduced. No comparison studies. discussed smoking cessationd iscussed inhalers Smoker 81875679 F17.200 former smoker but she resumed with recent stressdown to less than 1/2 PPDshe tried chantix which worked for 3 months but no longer working Osteopenia 005729240 M85 .80 Vit D normal 03/05/19she is on vit D/calciumb one density 2017, will do next year Coronary arteriosclerosis 01390265 I25.10 CT lungs 09/14/2020:I MPRESSION: Lung-RADS 1 - Negative. No nodules and definitely benign nodules. Continue annual screening with LDCT in 12 months. *Lung-RADS version 1.1 (revised ) Extensive coronary artery calcificat ions.she is on aspirin and statinwork ing on DM2 control and BP control Nicotine d ependence with current use 950600999 F17.200 smoking less than 1/2 PPDshe does not want to stop smoking Uncontroll ed type 2 diabetes mellitus 921157960 E11.65 on victoza and glimepirid eintoleran t of metformina 1c 7.6 on 03/05/19a1c 8.1 on 01/05/2020, she has been eating more sweets and missing doses of victoza about 3 [id number] 8.6 on 1a 1c 8.9 on 02/21/2021f oot examinatio n 07/05/19 showed sensation loss in ball of footeye examinatio n 06/2019 appointmen t in 07/2021. She is getting shots in her eyes at [facility] in [facility]. she has wet MDon trulicity on 3mg weekly Obesity 322907908 E66.9 BMI 33.8 on 06/26/2021 [id number] Nolvia Black MD [facility] [address] [place] [address] 01/24/2022 11:47:25 01/28/2022 16:03:16 Nicotine dependence with current use 809290183 F17.200 smoking less than 1/2 PPDshe does not want to stop smoking Essential hypertension 09963911 I10 on amlodipine , carvedilol , clonidine, and losartanst op clonidine due to weight lossmonito r blood pressure and if ongoing weight loss will need to stop amlodipine next Hypothyroidism 13544462 E03.9 on levothyrox ine 100mcg dailythyro id studies normal 02/21/2021t hyroid studies 01/08/2022 Hypomagnesemia 470697967 E83.42 magnesium 1.7 on 02/21/2021m agnesium 1.1 on 01/08/2022 increase magnesium to BID Gastroesop hageal reflux disease without esophagitis 179149295 K21.9 on PPI Mixed hyperlipidemia 267 772165 E78.2 on rosuvastat in 40mg dailyLDL 24 on 1L DL 26 on 01/08/2022 Depressive disorder 3548 9007 F32.9 on sertraline and cymbaltahe r isn't doing wellshe declines therapyshe [place] recently [place] ideation/h omicidalsh e wants to stop sertraline and continue cymbalta so will wean off Chronic pain syndrome 37 3853573 G89.4 on cymbalta and diclofenac insurance won't pay for diclofenac switch to prn aleve Adult heal th examination 122974134 Z00.00 mammogram normal 02/09/2020 wants to do every other yearmammog zuly scheduled for 02/07/2022h /o hysterecto my with normal pathologyc olonoscopy 04/09/19 normal, repeat in 10 yearsbone density done 10/30 showed osteopenia hep C negative 0 year smoking history. low dose lung cat scan 09/14/2020 Age relate d macular degeneration 034523415 H35.30 wet on left side and getting injections [place] injections Psoriasis 8391353 L40.9 uses steroid ointment in her earslocate d only in bilateral ears Obstructiv e sleep apnea syndrome 62255748 G47.33 wears cpap nightly Chronic ob structive pulmonary disease 14158432 J44.9 PFTs 07/09/2019 :Optimal study for interpreta tion. Spirometry shows mild obstructio n. There is no significan t bronchodil ator response. Diffusion Capacity is mildly reduced. No comparison studies. discussed smoking cessationd iscussed inhalers Osteopenia 655482962 M85 .80 Vit D normal 03/05/19she is on vit D/calcium Coronary arteriosclerosis 98549250 I25.10 CT lungs 09/14/2020:I MPRESSION: Lung-RADS 1 - Negative. No nodules and definitely benign nodules. Continue annual screening with LDCT in 12 months. *Lung-RADS version 1.1 (revised ) Extensive coronary artery calcificat ions.she is on aspirin and statinwork ing on DM2 control and BP control Obesity 841364041 E66.9 BMI 33.8 on 06/26/2021 BMI 30.1 on 01/24/2022 weight loss with trulicity Constipation 24577304 K5 9.00 start daily miralax Type 2 alexys betes mellitus 82430718 E11.42 intolerant of metformina 1c 7.6 on 03/05/19a1c 8.1 on 01/05/2020, she has been eating more sweets and missing doses of victoza about 3 [id number] 8.6 on 09/04/2020 1c 8.9 on 02/21/2021 1c 6.9 on 01/08/2022f oot examinatio n 07/05/19 showed sensation loss in ball of footeye examinatio n 06/2019 appointmen t in 07/2021. She is getting shots in her eyes at [facility]. she has wet MDon trulicity on 3mg weeklyd/c glimepirid e due to weight loss [id number] MD [facility] [facility] [address] [place] [address] 05/03/2022 10:57:33 05/03/2022 12:02:03 Body mass index 25-29 - overweight 048216179 Z68.29 Increased body mass index 77915839 E66.3 Closed fra cture of proximal left humerus 7635044542 0151616 S42.232A 72-year-ol d female left shoulder pain after a fall suffering a displaced comminuted fracture of the proximal humerus. X-rays on outside CD independen tly interprete d by myself today. Does show some subluxatio n of the head likely related to hematoma. Repeat axillary view today does show the head to be located. Plan discussed with patient at this point would recommend observatio n and nonoperati ve care as these typically heal well and do well functional ly. Did discuss the possibilit y long-term of needing operative interventi on. Sling immobiliza tion. She will begin pendulum exercises in 1 week. She will follow-up in 1 week repeat evaluation x-rays left shoulder. We will try her with a different pain medication as well. [id number] [facility] [address] [place] [address] 05/15/2022 11:20:07 05/15/2022 11:51:53 Closed fracture of proximal left humerus [id number] S42.232D [id number] Nolvia Black MD [facility] [address] [place] [address] 06/04/2022 17:06:59 06/11/2022 08:34:35 Nicotine dependence with current use 085852265 F17.200 smoking less than 1/2 PPDshe does not want to stop smoking Essential hypertension 02386788 I10 on amlodipine , carvedilol , clonidine, and losartanst op clonidine due to weight lossmonito r blood pressure and if ongoing weight loss will need to stop amlodipine next Hypothyroidism 28059094 E03.9 on levothyrox ine 100mcg dailythyro id studies normal 02/21/2021t hyroid studies 01/08/2022 Hypomagnesemia 893437263 E83.42 magnesium 1.7 on 02/21/2021m agnesium 1.1 on 01/08/2022 increase magnesium to BID Depressive disorder 3548 9007 F32.9 on sertraline and cymbaltahe r isn't doing wellshe declines therapyshe [place]ation/h omicidalsu spect her depression is flaring. order cymbalta to restart Type 2 alexys betes mellitus 51329468 E11.42 intolerant of metformina 1c 7.6 on 03/05/19a1c 8.1 on 01/05/2020, she has been eating more sweets and missing doses of victoza about 3 myyzc0j 8.6 on 09/04/2020 1c 8.9 on 02/21/2021 1c 6.9 on 01/08/2022f oot examinatio n 07/05/19 showed sensation loss in ball of footeye examinatio n 06/2019 appointmen t in 07/2021. She is getting shots in her eyes at [facility] place in [facility]. she has wet MDjyothi limon on 3mg weeklyd/c glimepirid e due to weight loss Adult heal th examination 399403374 Z00.00 mammogram normal 02/09/2020 wants to do every other yearmammog zuly scheduled for 02/07/2022h /o hysterecto my with normal pathologyc olonoscopy 04/09/19 normal, repeat in 10 yearsbone density done 10/30 showed osteopenia hep C negative 0 year smoking history. low dose lung cat scan 09/14/2020 Obesity 344590178 E66.9 BMI 33.8 on 06/26/2021 BMI 30.1 on 01/24/2022 weight loss with trulicityB OK 27.8 on 06/04/2022 on trulicity Administra tion of influenza vaccine 85009547 Z23 Screening for malignant neoplasm of respiratory tract 928214532 Z12.2 F17.213 Cobalamin deficiency 190 534859 E53.8 Vitamin D deficiency 347 87866 E55.9 [id number] [facility] [address] [place] [address] 06/05/2022 14:50:49 06/05/2022 15:23:28 Body mass index 25-29 - overweight 304012563 Z68.28 Increased body mass index 06316723 E66.3 Closed fra cture of proximal left humerus 3707102326 9247100 S42.232D [id number] Nolvia Black MD [facility] [address] [place] [address] 06/20/2022 12:20:42 06/28/2022 09:34:00 Nicotine dependence with current use 381086196 F17.200 smoking less than 1/2 PPDshe does not want to stop smoking Essential hypertension 34586174 I10 on amlodipine , carvedilol , clonidine, and losartanst op clonidine due to weight lossmonito r blood pressure and if ongoing weight loss will need to stop amlodipine next Hypothyroidism 42861539 E03.9 on levothyrox ine 100mcg dailythyro id studies normal 02/21/2021t hyroid studies 01/08/2022t hyroid normal 06/05/2022 Hypomagnesemia 522423835 E83.42 magnesium 1.7 on 02/21/2021m agnesium 1.1 on 01/08/2022 increase magnesium to BIDmagnesi um 1.7 on 06/05/2022 Mixed hyperlipidemia 267 434096 E78.2 on rosuvastat in 40mg dailyLDL 24 on 02/21/2021 DL 26 on 01/08/2022L DL 18 on 06/05/2022 Depressive disorder 3548 9007 F32.9 on sertraline and cymbaltahe r isn't doing wellshe declines therapyshe did recently go see her friend in [facility] denies suicidal ideation/h omicidalsh e wants to stop sertraline and continue cymbalta so will wean off Type 2 alexys betes mellitus 11581212 E11.42 intolerant of metformina 1c 7.6 on 03/05/19a1c 8.1 on 01/05/2020, she has been eating more sweets and missing doses of victoza about 3 [id number] 8.6 on 09/04/2020 1c 8.9 on 02/21/2021 1c 6.9 on 01/08/2022 1c 6.3 on 06/05/2022 foot examinatio n 07/05/19 showed sensation loss in ball of footeye examinatio n 06/2019 appointmen t in 07/2021. She is getting shots in her eyes at [facility] in [facility]. she has wet MDon trulicity on 3mg weeklyd/c glimepirid e due to weight loss Chronic pain syndrome 37 7286096 G89.4 on cymbalta and diclofenac insurance won't pay for diclofenac switch to prn alevediscu ssed could increase cymbalta to BID if needed Adult heal th examination 579105256 Z00.00 mammogram normal 02/07/2022h /o hysterecto my with normal pathologyc olonoscopy 04/09/19 normal, repeat in 10 yearsbone density done 10/30 showed osteopenia hep C negative 0 year smoking history. low dose lung cat scan 09/14/2020 Age relate d macular degeneration 926681702 H35.30 wet on left side and getting injections [facility] [place] is doing her injections Psoriasis 5725507 L40.9 uses steroid ointment in her earslocate d only in bilateral ears Obstructiv e sleep apnea syndrome 87870627 G47.33 wears cpap nightly Chronic ob structive pulmonary disease 24015115 J44.9 PFTs 07/09/2019 :Optimal study for interpreta tion.Aramis metry shows mild obstructio n.There is no significan t bronchodil ator response.D iffusion Capacity is mildly reduced.No comparison studies. discussed smoking cessationd iscussed inhalers Obesity 683331361 E66.9 BMI 33.8 on 06/26/2021 BMI 30.1 on 01/24/2022 weight loss with trulicityB OK 27.8 on 06/20/2022 Screening for cardiovascular system disease 265486123 Z13.6 06/05/2022 : total 87, Tri 98, HDL 49, LDL 18 Advance care planning 71 0601496 Z71.89 is POA Depression screening 171 911177 Z13.31 positive [id number] [facility] [address] [place] [address] 07/10/2022 15:28:41 07/10/2022 15:55:50 Body mass index 25-29 - overweight 805996280 Z68.27 Increased body mass index 85690690 E66.3 Closed fra cture of proximal left humerus 0026087011 1741979 S42.232D [id number] [facility] [address] [facility] [address] [place] [address] 08/07/2022 14:01:50 08/07/2022 14:31:48 Body mass index 25-29 - overweight 214404570 Z68.27 Increased body mass index 06178652 E66.3 Closed fra cture of proximal left humerus 2674465839 7618394 S42.232P 72-year-ol d female left shoulder stiffness and limited range of motion. Going to therapy without much improvemen t. Really does not have much pain. Does continue to smoke. Plan discussed options the patient of continued conservati ve measures versus considerat ion of surgical interventi on. This would require referral to a shoulder specialist potentiall y for reverse shoulder. She is really unsure how she like to proceed at this time. Advised her to start trying to use her shoulder is much as she can and help identify how much this bothers her whether it would be worth considerin g surgery. Would recommend she stop smoking as well. If she has further problems and wishes for referral she will call. [id number] Nolvia Black MD [facility] [address] [place] [address] 12/31/2022 15:00:31 12/31/2022 15:33:17 Nicotine dependence with current use 549286764 F17.200 smoking less than 1/2 PPDshe does not want to stop smoking Essential hypertension 32308287 I10 on amlodipine , carvedilol , clonidine, and losartanst op clonidine due to weight lossmonito r blood pressure and if ongoing weight loss will need to stop amlodipine next Hypothyroidism 46694502 E03.9 on levothyrox ine 100mcg dailythyro id studies normal 02/21/2021t hyroid studies 01/08/2022t hyroid normal 06/05/2022 Hypomagnesemia 764364467 E83.42 magnesium 1.7 on 02/21/2021m agnesium 1.1 on 01/08/2022 increase magnesium to BIDmagnesi um 1.7 on 06/05/2022 Mixed hyperlipidemia 267 625860 E78.2 on rosuvastat in 40mg dailyLDL 24 on 02/21/2021 DL 26 on 01/08/2022L DL 18 on 06/05/2022 Depressive disorder 3548 9007 F32.9 on sertraline and cymbaltahe r isn't doing wellshe declines therapyshe did recently [place] ideation/h omicidalsh e wants to stop sertraline and continue cymbalta so will wean off Type 2 alexys betes mellitus 63880338 E11.42 intolerant of metformina 1c 7.6 on 03/05/19a1c 8.1 on 01/05/2020, she has been eating more sweets and missing doses of victoza about 3 qilqw1v 8.6 on 09/04/2020 1c 8.9 on 02/21/2021 1c 6.9 on 01/08/2022 1c 6.3 on 06/05/2022 foot examinatio n 07/05/19 showed sensation loss in ball of footeye examinatio n 06/2019 appointmen t in 07/2021. She is getting shots in her eyes at [facility] place in [facility]. she has wet MDon ashly on 3mg weekly Chronic pain syndrome 37 3961487 G89.4 on cymbalta and diclofenac Obstructiv e sleep apnea syndrome 58040231 G47.33 wears cpap nightly Obesity 874346958 E66.9 BMI 33.8 on 06/26/2021 BMI 30.1 on 01/24/2022 weight loss with trulicityB OK 27.8 on 06/20/2022 OK 28.7 on 12/31/2022 she reports her appetite has returned Gastroesop hageal reflux disease without esophagitis 296388255 K21.9 on PPI Health Concerns Section Related Observation LastModified by Organization Detai ls LastModified Time None Recorded Concern Status LastModified by Organization Details LastModified Time None Recorded Advance Directives Directive None Recorded Payers Encounter Date Sequence Insurance Name Policy Number Policy Flores Covered Member ID Flores Member ID Guarantor Name 06/05/2022 1 [facility] (MEDICARE REPLACEMENT PFFS) [id number] Aureliano Smithb [id number] [id number] Aureliano Cottrell Zepeda 06/20/2022 1 [facility] (MEDICARE REPLACEMENT PFFS) [id number] Aureliano Meyers Zepeda [id number] [id number] Aureliano Cottrell Zepeda 07/10/2022 1 [facility] (MEDICARE REPLACEMENT PFFS) [id number] Aureliano Meyers Zepeda [id number] 1- Aureliano Cottrell Zepeda 08/07/2022 1 [employer] (MEDICARE REPLACEMENT PPO) [id number] Aureliano Meyers Zepeda [id number] Aureliano Cottrell Zepeda 12/31/2022 1 [employer] (MEDICARE REPLACEMENT PPO) [id number] 1 Aureliano Cottrell Zepeda [id number] Aureliano Cottrell Zepeda Notes Date Note Type Note Provider Name and Address Organization Details Recorded Time 06/05/2022 text/html 72-year-old lopez costa presents to clinic for follow-up on left proximal humerus fracture from 05/03/2022. Date of injury 05/01/2022. She states that her shoulder still hurts. She has been doing stuff with her arm as much as she can, baking. She is wearing her sling some, can not lift her arm up. YADIRA SILVERMAN PA-C [address] [place] [address], [phone], [facility] 06/05/2022 15:32:01 06/20/2022 text/html Medicare Annual Wellness VisitReported bypatient.Diet and Nutrition:discussed portion control Fracture Risk:no sudden unexplained fractures;recent explained fracture(LEFT shoulder s/p fall recently);previous musculoskeletal injuries Physical Activity:does not exercise on a regular basis;deconditioned due to sedentary lifestyle Depression Risk:no loss of interest in activities; no significant changes in weight; no thoughts of suicide;sleep disturbances or insomnia;agitated;his tory of mood disorders;history of depression; trouble staying asleep; I have been irritable lately. And I have no desire to do anything with all of this shut in and stuff feeling better going out with friends Orientation:no disorientation to time; no disorientation to date; no disorientation to place Concentration and Memory:no memory lapses or loss; occasionally I have to think about things for a minute Speech/Motor difficulties:no speech difficulties; no difficulty expressing formulated concepts; no difficulty writing/copying Hearing:no loss of hearing Vision:no vision problems (annual exam per Arleen Hanks; sees retinal specialist and gets injections every 7 weeks for eleni GEORGES) Activities of Daily Living:able to bathe with limited or no assistance; able to contol urination and bowels; able to dress with limited or no assistance; able to feed self with limited or no assistance; able to get out of chair or bed with limited or no assistance; able to groom with limited or no assistance; able to toilet with limited or no assistance Instrumental Activities of Daily Living:able to do house work with limited or no assistance; able to grocery shop with limited or no assistance; able to manage medications with limited or no assistance; able to manage money with limited or no assistance; able to prepare meals with limited or no assistance; able to use the phone with limited or no assistance Falls Risk Assessment:no frequent falls while walking; fall(s) in the past year 1; fall(s) since last visit0;injury with fall(RIGHT fx shoulder recently) Home Safety:no unsafe lyle hazzards; no unsafe stairs; working smoke/CO detectors; use of seatbelts; has hand bars in the bathroom/shower; good lighting in the home; has a walk-in shower ANNUAL MEDICARE WELLNESS VISITcont living at home w/ who is present during exam 2# wgt loss; reports sl increase in appetite brings meds in bottles for review vacc UTD except Tdap; declines further mamm January --2019 at [facility] Cocolonoscopy 2019 regular bowel and bladder habits PT 3dys/week for RIGHT shoulder Fx other Drs:ortho--Clayopt tania--Arleen Black MD [address] [place], [address], [facility] 06/20/2022 12:56:22 07/10/2022 text/html 72-year-old lopez costa presents to clinic for follow-up on left proximal humerus fracture from 05/03/2022. Date of injury 05/01/2022. She states she is not really sure how she is doing. Her shoulder still is hurting does not have motion in her shoulder she is doing therapy feels that she is improving a little with therapy. YADIRA SILVERMAN PA-C [address] [place], [phone], [facility] 07/10/2022 16:55:50 08/07/2022 text/html Patient turns a follow-up evaluation left shoulder. Says she would not have much pain but the weakness and stiffness are her biggest issue. Going to therapy not making a lot of progress per her report. CLAUDE THURSTON MD [address] [place], [address], [facility] 08/07/2022 14:32:33 12/31/2022 text/html 6# wgt gain verbal review of med list has not smoked in the past month no current complaints recent LEFT total shoulder reversal in [place]; wearing a sling now; OP PT upset that [facility] does not accept her Ins any longer Nolvia Black MD [address] [place], [address], [facility] 12/31/2022 15:38:02 OBGyn Episode No OBEpisode recorded.
--- OUTSIDE RECORDS SUMMARY | 2024-10-28 15:37 | XMS_ITS | Data Portability ---
Author Organization [place] - [facility], [facility], Bypass Address [address] [place] [address] [place] [address] Care Team Providers Care Skidder Runner Name Role Phone DARIN KNAPP Primary Care Provider [phone] Assessment No assessment recorded. Plan of Treatment Reminders Order Date Submit Date Provider Last Modified By Organization Details Last Modified Time Details Appointments None recorded. Lab None recorded. Referral None recorded. Procedures None recorded. Surgeries None recorded. Imaging XR, hip, unilateral, 2 or 3 view 2023 024 [email or web address] In-House Test, For Internal Use Only, Do Not Delete/merge, [id number] 18:01:14 Medication Orders fluticasone propionate 50 mcg/actuati on nasal spray,suspe nsion 2023 024 [facility], [facility] [place], [address], 4 10:42:28 Augmentin 875 mg-125 mg tablet 2023 024 3 [facility], [facility] [place], [address], 4 15:27:25 Patient TargetsNo targets recorded. Patient Instructions Encounter Date Encounter Id Patient Instructions Last Modified By Organization Details Last Modified Time 08/11/2023 [id number] Learning About Benefits of Quitting Smoking Not available 08/11/2023 21:05:02 smoking cessatio n counseling Not available 08/11/2023 21:05:02 Reason for Referral None Reported. Results Created Date Observation Date Name Description Value Unit Range Abnormal Flag Note LastModifiedBy Organization Detail LastModifiedTime 11/24/1911/19/2023 polys omnog zuly, diagn ostic , 6 yrs or older No observ ation record ed. [facility] [place] [address] [place] [address], [place], [address], 11/24/2023 15:23:30 12/02/19 24 11/30/2023 polys omnog zuly, titra tion study No observ ation record ed. [facility] [place] [address] , [place], [address], 12/02/2023 10:55:25 02/11/20 24 XR, hip, unila teral , 2 or 3 view No observ ation record ed. [email or web address] In-House Test For Internal Use Only, Do Not Delete/merge, [id number] 02/11/2024 17:43:49 Result Notes None recorded. Problems Name Problem SNOMED Code Status Onset Date Resolution Date Notes Provider Name and Address Organization Details Recorded Time Hypothyroidism 55835406 Active 2022 Milagro mendoza [facility] 3 10:41:55 Hypertensive disorder 13531596 Active 2022 Milagro mendoza [facility] 3 10:42:05 Problem Notes None recorded. Procedures Surgical History Date Name Laterality Status Provider Name and Address Organization Details Recorded Time 11/20/19 24 Acoustic Immitance Test completed PATSY Jordan [address], [address], [facility] 11/20/2023 14:31:18 12/25/19 23 REVERSE TOTAL SHOULDER ARTHROPLASTY (SURG) completed Mallory Batista [facility] 12/24/2022 22:23:04 10/25/19 22 Cerumen removal with microscope completed Azalia Carl APRN [address], [place], [address], [facility] 10/24/2021 15:37:23 09/30/19 19 Cryosurgery Warts/ISK/MC completed [address], [address], [place] [facility] 09/29/2018 14:02:01 Knee Surgery completed Heather MCGUIRE [facility] 09/01/2018 09:59:53 Hysterectomy completed Heather MCGUIRE [facility] 09/01/2018 10:00:02 Imaging Results Imaging Date Name Status LastModified by Organiz ation Details LastModified Time 11/19/2023 polysomnogram, diagnostic, 6 yrs or older completed [address] [facility] [place] [address] [place] [address], [place], [address], 11/24/2023 15:23:30 11/30/2023 polysomnogram, titration study completed [address] [facility] [address] , [place], [address], 12/02/2023 10:55:25 02/11/2024 XR, hip, unilateral, 2 or 3 view completed [email or web address] In-House Test For Internal Use Only, Do Not Delete/merge, [id number] 02/11/2024 17:43:49 Procedure Notes None recorded. Medical Equipment None Reported. Allergies Allergen ID Allergen Name Allergen Category Reaction Reaction Severity Criticality Documentation Date Start Date Code Code System Note Provider Name and Address Organization Details Recorded Time 025306 latex environme nt,medica tion rash Not available Not available 09/01/2018 13623 91 RxNorm Heather Silverman [facility], [facility] 9 09:53:00 Medications Name Sig Start Date Stop Date Status Note LastModified by Organization Details LastModified Time neomycin-po lymyxin-hyd rocort 3.5 mg/mL-10,00 0 unit/mL-1 % ear solution 02/10 completed Not Available Not Available Not Available carvedilol 25 mg tablet Take 1 tablet twice a day by oral route. 09/16 completed Not Available Not Available Not Available hydrocodone 5 mg-acetamin ophen 325 mg tablet Take 1 tablet every 6 hours by oral route as needed. 04/30 completed Not Available Not Available Not Available Medrol (Lloyd) 4 mg tablets in a dose pack Take 1 dose pk by oral route as directed. 03/19 completed Not Available Not Available Not Available prednisone 20 mg tablet Take 3 tablets each morning for a week, then 2 tablets each morning for a week, then 1 tablet each morning for a week 04/30 completed Not Available Not Available Not Available amlodipine 5 mg tablet 02/10 completed Not Available Not Available Not Available hydrocodone 10 mg-acetamin ophen 325 mg tablet 04/30 completed Not Available Not Available Not Available tramadol 50 mg tablet 04/30 completed Not Available Not Available Not Available spironolact one 25 mg tablet Take 1 tablet every day by oral route. 09/16 completed Not Available Not Available Not Available levothyroxi ne 100 mcg tablet Take 1 tablet every day by oral route. active Not Available Not Available No t Available oxycodone-a cetaminophe n 5 mg-325 mg tablet 04/30 completed Not Available Not Available Not Available aspirin 325 mg tablet,carol yed release 04/30 completed Not Available Not Available Not Available meclizine 25 mg tablet Take 1 tablet 3 times a day by oral route. 09/16 completed Not Available Not Available Not Available amlodipine 10 mg tablet active Not Available Not Available Not Available hydrocodone 7.5 mg-acetamin ophen 325 mg tablet 04/30 completed Not Available Not Available Not Available glimepiride 4 mg tablet Take 1 tablet every day by oral route. 09/16 completed Not Available Not Available Not Available omeprazole 20 mg capsule,del ayed release active Not Available Not Available Not Available aspirin 81 mg tablet Take by oral route. active Not Available Not Available No t Available mometasone 0.1 % topical ointment APPLY A THIN LAYER TO THE AFFECTED AREA OF EARS BY TOPICAL ROUTE ONCE DAILY. FOR EARS ONLY. 09/16 completed Not Available Not Available Not Available oxycodone-a cetaminophe n 7.5 mg-325 mg tablet 04/30 completed Not Available Not Available Not Available hydrocortis one 2.5 % topical ointment APPLY A THIN LAYER TO THE AFFECTED AREAS OF FACE AND CHEST BY TOPICAL ROUTE ONCE PER DAY. 09/16 completed Not Available Not Available Not Available ketoconazol e 2 % topical cream Apply to the affected areas on face, ears, and chest once a day. 09/16 completed Not Available Not Available Not Available clobetasol 0.05 % scalp solution APPLY TO THE AFFECTED SCALP AREA BY TOPICAL ROUTE ONCE DAILY IN THE EVENING. DO NOT RINSE OUT. FOR SCALP ONLY. 09/16 completed Not Available Not Available Not Available losartan 100 mg tablet Take 1 tablet every day by oral route. active Not Available Not Available No t Available fluticasone propionate 50 mcg/actuati on nasal spray,suspe nsion Sassafras 1 spray every day by intranasa l route. active Not Available Not Available No t Available amoxicillin 875 mg-potassiu m clavulanate 125 mg tablet Take 1 tablet every 12 hours by oral route for 10 days. 02/10 completed Not Available Not Available Not Available cyclobenzap rine 5 mg tablet Take 1 tablet 3 times a day by oral route. 04/30 completed Not Available Not Available Not Available rosuvastati n 40 mg tablet active Not Available Not Available Not Available duloxetine 60 mg capsule,del ayed release active Not Available Not Available Not Available magnesium active Not Available Not Delia ilable Not Available clonidine 09/16 completed Not Available Not Available Not Available calcium active Not Available Not Avail able Not Available omeprazole 04/30 completed Not Available Not Available Not Available diclofenac sodium 09/16 completed Not Available Not Available Not Available amlodipine 04/30 completed Not Available Not Available Not Available Vitamin D active Not Available Not Delia ilable Not Available Caltrate 600 09/16 completed Not Available Not Available Not Available Accu-Chek 09/16 completed Not Available Not Available Not Available duloxetine 04/30 completed Not Available Not Available Not Available varenicline tartrate 0.5 mg (11)-1 mg (42) tablets in a dose pack 04/30 completed Not Available Not Available Not Available aripiprazol e 2 mg tablet active Not Available Not Available Not Available Novofine 32 04/30 completed Not Available Not Available Not Available D3 Plus K2 Dots 25 mcg (1,000 unit)-90 mcg disintegrat ing tablet Take by oral route. active Not Available Not Available No t Available Victoza 09/16 completed Not Available Not Available Not Available B12 active Not Available Not Availa ble Not Available Accu-Chek Keyana Plus Meter 09/16 completed Not Available Not Available Not Available Trulicity 04/30 completed Not Available Not Available Not Available Shingrix (PF) 10/24 completed Not Available Not Available Not Available rosuvastati n 20 mg sprinkle capsule Take by oral route. 04/30 completed Not Available Not Available Not Available Trulicity 3 mg/0.5 mL subcutaneou s pen injector active Not Available Not Available Not Available Vitals Date Recorded Body height Heart rate Body temperature Body mass index (BMI) Body weight Provider Name and Address Organization Details Last Updated DateTime 08/11/2023 172.72 cm 82 /min 98.2 [degF] 29 kg/m2 21256.42 g Ruddy Klein [facility] 4 11:44:31 Date Recorded Body height Body mass index (BMI) Body weight Body temperature Heart rate Systolic blood pressure Diastolic blood pressure Provider Name and Address Organization Details Last Updated DateTime 4 172.72 cm 29.6 kg/m2 43917.5 1 g 97.4 [degF] 84 /min 141 mm[Hg] 69 mm[Hg] [facility] 4 10:11:38 Date Recorded Body height Body mass index (BMI) Body weight Body temperature Heart rate Systolic blood pressure Diastolic blood pressure Provider Name and Address Organization Details Last Updated DateTime 4 172.72 cm 29.1 kg/m2 74731.3 g 97.8 [degF] 81 /min 150 mm[Hg] 66 mm[Hg] [facility] 4 13:57:48 Date Recorded Body height Body mass index (BMI) Body weight Heart rate Body temperature Provider Name and Address Organization Details Last Updated DateTime 02/11/2024 172.72 cm 29.2 kg/m2 34545.74 g 84 /min 97.5 [degF] Veronica Jose A [place] [facility] 15:27:14 Social History Question Answer Notes LastModified by Organization Details LastModified Time Tobacco Smoking Status Current Every Day Smoker quit 11/10/2022 [place] [facility] 12/11/2022 12:34:38 Do You Have An Advance Directive? Yes [email or web address] Information not available 04/30/2023 What Is Your Level Of Alcohol Consumption? Occasional once In A Blue Trinh [email or web address] Information not available 12/11/2022 How Many Times Per Week Do You Consume Alcohol? Less Than 1 Time Per Week [email or web address] Information not available 04/30/2023 Is Blood Transfusion Acceptable In An Emergency? Yes [email or web address] Information not available 04/30/2023 Are You Currently Employed? No Retired [email or web address] Information not available 04/30/2023 Which Of Your Hands Is Dominant? Right [email or web address] Information not available 04/30/2023 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 11/05/2023 [email or web address] Information not available 11/05/2023 How Many Children Do You Have? 2 [email or web address] Information not available 04/30/2023 At What Age Did You Start Smoking Tobacco? 14 Information not available 10/24/2021 How Much Tobacco Do You Smoke? 1 PPW Information not available 10/24/2021 Do You Use Any Illicit Or Recreational Drugs? No [email or web address] Information not available 04/30/2023 Has Tobacco Cessation Counseling Been Provided? Yes [email or web address] Information not available 02/03/2023 On What Date Was Tobacco Cessation Counseling Provided? 08/11/2023 [email or web address] Information not available 08/11/2023 How Many Years Have You Smoked Tobacco? 53 Information not available 10/24/2021 Do You Or Have You Ever Used Any Other Forms Of Tobacco Or Nicotine? No [email or web address] Information not available 02/03/2023 Sex: Unknown Functional Status Question Answer Note LastModified by Organizat ion Details LastModified Time Do you have difficulty walking or climbing stairs? No [email or web address] Information not available 04/30/2023 Are you able to walk? YESWOREST [email or web address] Information not available 04/30/2023 Are you able to care for yourself? Yes [email or web address] Information not available 04/30/2023 What is your exercise level? None [email or web address] Information not available 02/11/2024 Mental Status None recorded. Family History Relationship Description Onset Age of this Age Resolved Age Notes LastModified by Organization Details LastModified Time Unspecified Relation Family history of Thyroid disorder Not available 2018 09:59:09 Unspecified Relation Hypertensive disorder Not available 2018 09:59:20 Unspecified Relation Diabetes mellitus [email or web address] Not available 2018 09:59:28 Notes:pt denies family hx of skin cancer, eczema, or psoriasis Medical History Condition Response Pancreatitis N Anxiety/Depression N Other N Gout N Thyroid Disease Y Blood Diseases N Enlarged Prostate N Ear/Hearing Problems N Bladder Infections N Developmental or Behavioral Disorders N Pulmonary Hypertension N Aortic Stenosis N Anesthesia Complications N Eczema, Hives or other skin conditions N Cystic Fibrosis N Muscle, Joint, or Bone Problems N Hemorrhoids N Autoimmune disease N Arthritis N Infertility N Angina/Heart Attack N Cancer N Stroke N Crohn's Disease N HIV/AIDS N Endometriosis N High Cholesterol N IBS/Colitis N Skin Cancer N Liver Disease N Respiratory Problems N Kidney Disease N Malignant Hyperthermia N Bleeding Tendencies N Gallbladder Disease N ADD or ADHD N Skin Problems N Anemia N Colon Polyps N Stomach Ulcers N Diabetes N Seizures/Epilepsy N Headaches or Migraines N Tuberculosis N Diverticulitis N Asthma N Allergies N Morbid Obesity N Eye/Vision Problems N Jaundice N Sleep Apnea N GERD/Reflux N Hepatitis N Heart Disease N Low Back Pain N Hypertension Y Chicken Pox N Gynecological HistoryNo gynecological history recorded. Obstetrics History GPAL:G 0 P 0 0 0 0 Past Encounters Encounter ID Performer Location Encounter Start Date Encounter Closed Date Diagnosis/Indication Diagnosis SNOMED-CT Code Diagnosis ICD10 Code Diagnosis Note [id number] Josefina Mckinney [facility] [address] [place] [address] 09/01/2018 09:48:58 09/01/2018 13:01:06 Chronic seborrheic dermatitis 232582733 L21.8 -Red scaly rash with itchy sensation present on face/scalp -Etiology explained to patient-Re commended Head and Shoulders/ Selsun Blue shampoo and OTC instructio ns-Treatme nt as below-Caridad re on ears, recheck 1 month Intertrigo 00833790 L30. 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 -Small red papular lesions present on exam -Reassuran ce provided to patient -No treatment indicated unless cosmetical ly unacceptab le to patient [id number] Josefina Mckinney [facility], Dermatolo gy [address] [facility] [address] [place] [address] 09/29/2018 09:56:02 09/29/2018 10:54:14 Chronic seborrheic dermatitis 311344117 L21.8 Update:-We ll controlled -Using tx prn-Pt pleased-Co ntinue this Previously :-Red scaly rash with itchy sensation present on face/scalp -Etiology explained to patient-Re commended Head and Shoulders/ Selsun Blue shampoo and OTC instructio ns-Treatme nt as below-Caridad re on ears, recheck 1 month Intertrigo 31647682 L30. 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 -Brown scaly lesions of concern to patient -Informed on etiology -Benign and reassuranc e provided -No treatment needed unless patient wishes to remove for cosmetic reasons or if lesions become severely symptomati c or inflamed-C lesly applied to one of left cheek which is bothersome to pt [id number] [facility] [address] [facility] [place] [address] 10/24/2021 14:55:26 10/24/2021 15:37:38 Impacted cerumen in left ear 0492729325 624981 H61.22 Doing well status post unilateral left ear cerumen impaction debridemen t with microscope and instrument s in clinic today. She can return in 6 months. Smoker 42832413 F17.200 Educated pt to follow up with her PCP. [id number] [place] [address] [facility] [address] [place] [address] 09/16/2022 11:27:37 09/16/2022 13:28:24 Pain of left shoulder joint 7809249977 4965298 M25.512 She presents here today with a left shoulder injury that occurred in April. She had fallen and landed on her left shoulder and had significan t pain weakness and stiffness since that time. She has been treated nonoperati vely in another facility. She presents here today for second opinion. On examinatio n she does have painful limited range of motion of his left shoulder. She is only able to forward flex and abduct to about 60 or 70 degrees. I personally viewed her x-rays and gone over these with her which do demonstrat e a malunited proximal humerus fracture. I have given her risks and benefits of various treatment options. I discussed with her that continued exercises can be helpful, I am not sure it is worthwhile to keep going to physical therapy though, I recommend she do her exercises on her own. Other options include reverse shoulder replacemen t. She understand s this would be a surgery we removed the broken parts and put in replacemen t parts. She understand s to get a good result this would require significan t rehabilita tion. She also understand s that she is a smoker that she does have a higher risk of complicati ons. I did recommend smoking cessation for her. Tobacco user [id number] Z 72.0 [id number] [place] [place] [address] [facility] [address] [place] [address] 12/11/2022 11:40:17 12/11/2022 12:52:12 Pain of left shoulder joint 9340675302 1559141 M25.512 She presents here today with a left shoulder injury that occurred in April. She had fallen and landed on her left shoulder and had significan t pain weakness and stiffness since that time. She has been treated nonoperati vely in another facility. She presents here today for second opinion. On examinatio n she does have painful limited range of motion of his left shoulder. She is only able to forward flex and abduct to about 60 or 70 degrees. I personally viewed her x-rays and gone over these with her which do demonstrat e a malunited proximal humerus fracture. I have given her risks and benefits of various treatment options. I discussed with her that continued exercises can be helpful, I am not sure it is worthwhile to keep going to physical therapy though, I recommend she do her exercises on her own. Other options include reverse shoulder replacemen t. She understand s this would be a surgery we removed the broken parts and put in replacemen t parts. She understand s to get a good result this would require significan t rehabilita tion. She also understand s that she is a smoker that she does have a higher risk of complicati ons. I did recommend smoking cessation for her. Tobacco user [id number] Z 72.0 [id number] Mallory Reyes [facility] [address] [facility] [place] [address] 12/28/2022 11:06:30 12/28/2022 14:04:09 [id number] Mallory Reyes Robson [facility] [address] [facility] [place] [address] 12/28/2022 11:05:12 12/28/2022 13:55:38 [id number] [place] [address] [facility] [place] [address] 01/06/2023 09:41:43 01/06/2023 10:12:52 History of reverse prosthetic total arthroplasty of left shoulder 5185889479 9289041 Z96.612 Ms. Frizt is a 73-year-ol d female who is status post reverse total shoulder arthroplas ty performed by Dr. Selby on 12/24/2022. Patient doing well pleased procedure at this point. Kayode made today. Continue PT. Remove sling. Follow-up in 4 weeks. All questions answered in detail today. [id number] T[place] [address] [facility] [place] [address] 02/03/2023 11:15:13 02/03/2023 12:45:34 History of reverse prosthetic total arthroplasty of left shoulder 1222832061 6119736 Z96.612 She presents here today for follow-up of her left shoulder after shoulder replacemen t. I discussed with her her shoulder was very stiff at the time of surgery which made it very difficult to do the Shoulder replacemen t for her. She is working in physical therapy. She has limited motion and strength at this point. I encouraged her to continue working with this. I have recommende d a Medrol Dosepak. She would also like a refill of her pain medication . I asked her to take it before she goes to physical therapy. I personally viewed her x-rays about arms with her which demonstrat e normal findings after shoulder replacemen t. [id number] [place] [address] [facility] [address] [employer], [place] [address] 03/19/2023 10:33:52 03/19/2023 11:31:37 Impingement syndrome of left shoulder region 6660522396 77163 M75.42 History of reverse prosthetic total arthroplasty of left shoulder 2163143687 8751347 Z96.612 Ms. Fritz is a 73-year-ol d female who is status post reverse total shoulder arthroplas ty performed by Dr. Selby on 12/24/2022. Patient doing well pleased procedure at this point. Still does not have full range of motion/str ength. Has been discharged in PT due to insurance. Continue working with home exercises. She will be given Flexeril and long Medrol. Follow-up 4 to 6 weeks. All questions answered in detail today. [id number] REESE [place] [address] [facility] [address] [employer] [address], [place] [address] 04/30/2023 10:28:51 04/30/2023 11:00:47 History of reverse prosthetic total arthroplasty of left shoulder 3849010843 4568442 Z96.612 Ms. Fritz is a 73-year-ol d female who is status post reverse total shoulder arthroplas ty performed by Dr. Selby on 12/24/2022. Patient doing well pleased procedure at this point. Still does not have full range of motion/str ength. Has been discharged in PT due to insurance. Continue working with home exercises. Follow up as needed. All questions answered in detail today. [id number] T[place] [address] [facility] [address] [place] [address] 08/11/2023 10:43:59 08/11/2023 12:19:25 Tobacco user [id number] Z72.0 History of reverse prosthetic total arthroplasty of left shoulder 7531033451 6074384 Z96.612 She presents here today for follow-up of her left shoulder after shoulder replacemen t For fracture. She indicates she is more functional than she was before surgery. She has more strength and more motion, but she does not yet have her full motion. I have gone over risks and benefits various options with her. I recommende d continued home exercises. She understand s we will be happy to send a new PT referral for her. I discussed with her that she might end up with stiffness given her accident and injury and surgical interventi on. She is happy with results. We will see her back in our office as needed. [id number] Azalia Carl APRN Ear, Nose & Throat [id number] EEK SAIGE,[facility] [address] [address] 11/05/2023 10:05:42 11/05/2023 11:15:55 At high risk for fall [id number] Z91.89 Based on Castillo fall risk, patient is at a high risk for fall and was instructed to follow up with PCP. Serous otitis media 8032 7007 H65.92 Will get patient on oral antibiotic Augmentin for 10 days as well as Flonase daily will see patient back in 2 weeks. Will see patient back on the day audiology is here in case we need to do audiology testing. If no improvemen t at that time we will do a nasal endoscopy to make sure nothing is blocking the eustachian tube. Patient verbalized understand ing and is in agreement. [id number] Azalia Carl APRN Ear, Nose & Throat [id number] THEODORA MOULTON,[facility] [address] [phone] 11/20/2023 13:48:58 11/20/2023 14:42:20 At high risk for fall [id number] Z91.89 Based on Castillo fall risk, patient is at a high risk for fall and was instructed to follow up with PCP. Serous otitis media 8032 7007 H65.92 Will get patient on oral antibiotic Augmentin for 10 days as well as Flonase daily will see patient back in 2 weeks. Will see patient back on the day audiology is here in case we need to do audiology testing. If no improvemen t at that time we will do a nasal endoscopy to make sure nothing is blocking the eustachian tube. Patient verbalized understand ing and is in agreement. Today: Resolved type a temps bilaterall y. Follow-up as needed. [id number] PATSY Whitman Ear, Nose & Throat [address] [facility] [address] [place] [address] 11/20/2023 14:30:43 11/20/2023 14:33:07 Dysfunction of bilateral eustachian tubes [id number] H69.93 [id number] [place] [address] [facility] [address] [place] [address] 02/11/2024 15:08:45 02/11/2024 16:03:32 Pain of left hip joint [id number] M25.552 She presents here today after having a fall landing on her left hip. She is indicated she had much ecchymosis and swelling over the left hip buttock area. She has have a golf ball sized mass just posterior to the trochanter . This appears to be freely mobile, but appears to be hematoma. I personally viewed her x-rays and gone over his with her which demonstrat e no change in hardware position or alignment. I discussed her I do think her issue is soft tissue, hematoma. I recommende d conservati ve measures. Health Concerns Section Related Observation LastModified by Organization Detai ls LastModified Time None Recorded Concern Status LastModified by Organization Details LastModified Time None Recorded Advance Directives Directive Y: Payers Encounter Date Sequence Insurance Name Policy Number Policy Flores Covered Member ID Flores Member ID Guarantor Name 08/11/2023 1 [employer] (MEDICARE REPLACEMENT HMO) [id number] 1 Aureliano Fritz [id number] Aureliano Fritz 11/05/2023 1 [employer] (MEDICARE REPLACEMENT HMO) [id number] 1 Ferdine M Fritz [id number] Ferdine M Fritz 11/20/2023 1 [employer] (MEDICARE REPLACEMENT HMO) [id number] 1 Ferdine M Fritz [id number] Ferdine M Fritz 11/20/2023 1 [employer] (MEDICARE REPLACEMENT HMO) [id number] 1 Ferdine M Fritz [id number] Ferdine M Fritz 02/11/2024 1 [employer] (MEDICARE REPLACEMENT HMO) [id number] 1 Ferdine M Fritz [id number] Ferdine M Fritz Notes Date Note Type Note Provider Name and Address Organization Details Recorded Time 08/11/2023 text/html HPI WKOSM UpperReported bypatient.Location: Left Shoulder Context:Injury (Describe Injury) (fall) Onset/Duration: Severity:pain level 0/10 Associated Symptoms:catching/l ocking; limited ROM Prior Treatment/Surgery:p rior treatment description (L rev TSA sx: 12/24/22) Tani Selby MD [address] [place] [address], [phone], [facility] 08/11/2023 14:20:12 11/05/2023 text/html This is a 73-year-old female that presents to clinic today stating she has had some left ear fullness. She denies any sudden hearing loss or ear pain or ear drainage. She states has been going on for a couple weeks. She does not use any nasal sprays daily. Azalia Carl APRN [address] [place] [address], [phone], [facility] 11/05/2023 11:09:56 11/20/2023 text/html This is a 73-year-old female that presents to clinic today for 2-week follow-up after having otitis media of the left ear. Patient had a decline in hearing that she noticed at that time. Patient states she feels like her hearing is back to normal now she does not have any ear complaints no ear pain no ear drainage. Azalia Carl APRN [address], [phone], [facility] 11/20/2023 14:38:40 02/11/2024 text/html HPI WKOSM LowerReported bypatient.Location: Left Hip; Left Knee; Left Ankle/Foot; Left Lower Extremity Severity:pain level 0/10 Prior Treatment/Surgery:p rior treatment description Tani Selby MD [address] [place] [address], [phone], [facility] 02/11/2024 17:44:55 OBGyn Episode No OBEpisode recorded.
--- OUTSIDE RECORDS SUMMARY | 2024-10-28 15:37 | XMS_ITS ---
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 Role Phone ARIA Newby Attending Unavailable Immunization Immunization Date Status Additional Notes Code Code System influenza, whole 05/14/2014 Completed 16 CV X pneumococcal polysaccharide PPV23 04/29/2014 Completed 33 CVX COVID-19, mRNA, LNP-S, PF, 1 00 mcg/0.5mL dose or 50 mcg/0.25mL dose 09/20/2020 Completed 207 CVX COVID-19, mRNA, LNP-S, PF, 1 00 mcg/0.5mL dose or 50 mcg/0.25mL dose 10/20/2020 Completed 207 CVX Results >>3D DIG SCREENING MAMMO - C ompleted: 10/22/2023 14:09 LOINC: \TM00\12PI\LM03\RM80\JAYJAY o\BM09\ \MRLo\ [place] [address] ---------NAME--------- NUMBER SEX AGE ADMIT DISC. XRAY# F/C TYPE KATELYN Meyers [id number] F 73 10/22/23 10/22/23 11715 RB3 O/P DATE OF : 1950 M/R# [id number] PH#: [phone] RM \MRHx\ LOCATION: TRANSCRIBED: 10/23/23 6:44 >>3D DIG SCREENING MAMMO COMPLETED:10/22/23 14:09 [facility] [id number] {TEST REASON: SCREENING PHYSICIAN: ARIA RADIOLOGY REPORT ORDER DATE and TIME: 10/22/2023 1219 Screening bilateral 2-D mammography Screening bilateral 3-D breast tomography October 22, 2023 TECHNIQUE: Digital 2-D mammographic and 3-D tomographic examination of both breasts in MLO and CC projections compared with previous studies dated 02/07/2022 and 02/09/2020. Study reviewed with the aid of CAD FINDINGS: Scattered fibroglandular densities present in both breasts are distributed in a generally unchanged pattern with a few scattered stable benign appearing variable sized nodular opacities present in both breasts. No one particular area worrisome enough to warrant additional imaging/intervention at this time. Largely ungrouped secretory type calcifications present bilateral. No worrisome grouped microcalcifications seen on either side. IMPRESSION: BI-RADS 2 benign findings grossly stable. Routine annual screening bilateral mammography recommended. Electronically signed by: Enzo Tyler MD 10/23/2023 06:44 AM CDT [facility] - Compl eted: 10/22/2023 14:09 LOINC: \TM00\12PI\LM03\RM80\JAYJAY o\BM09\ \MRLo\ [place] [address] ---------NAME--------- NUMBER SEX AGE ADMIT DISC. XRAY# F/C TYPE KATELYN TARIKJAYSON Meyers [id number] F 73 10/22/23 10/22/23 [id number] RB3 O/P DATE OF : 1950 M/R# [id number] PH#: [phone] RM \MRHx\ LOCATION: TRANSCRIBED: 10/22/23 22:19 [facility] [id number] COMPLETED:10/22/23 14:09 ABBY [id number] {SPINE PROCED REASON: OSTEOPOROSIS PHYSICIAN: ARIA RADIOLOGY REPORT ORDER DATE and TIME: 10/22/2023 1220 Procedure: DEXA scan CLINICAL INDICATION: Postmenopausal osteoporosis screening PROCEDURE/TECHNIQUE: Scans of the L1-L4 levels and the right hip obtained using dual absorption technique. FINDINGS: Average lumbar spine bone density 1.634 gm/cm2. T-Score of 3.8 corresponds to a World Health Organization criteria of normal bone density. Change of -5.8% from 10/29/2017. Right femoral neck bone density 0.937 gm/cm2. T-Score of -0.7 corresponds to a World Health Organization criteria of normal bone density. Total right hip T score of -1.3 corresponds to osteopenia. Change of -9.0% in total right hip bone density from 10/29/2017. FRAX score Based on risk factors and right femoral neck bone density, fracture probabilities are as follows: Major osteoporotic fracture 13.8 %. Hip fracture 2.8 %. CONCLUSION: Lumbar spine normal bone density. Total left hip osteopenia. Fracture risk increased. Bone densities have diminished from prior study. FRAX score Major osteoporotic fracture 13.8 %. Hip fracture 2.8 %. The NQF recommends that FDA-approved medical therapies be considered in post-menopausal women and men age >/= 50 years with a: * Hip or vertebral fracture, or * T-score of </= -2.5 (osteoporosis) at the spine or hip, or * Ten-year fracture probability by FRAX of: * >/= 20% for major osteoporotic fractures or * >/= 3% for hip fractures All treatment decisions require clinical judgement and consideration of individual patient factors, including patient preferences, comorbidities, previous drug use, risk factors not captured in the FRAX registered model (e.g., frailty, falls, vitamin D deficiency, increased bone turnover, interval significant decline in bone density) and possible under- or over-estimation of fracture risk by FRAX. [id number] Electronically signed by: Irma Shah MD 10/22/2023 10:19 PM CDT Social History Type Status Start Date End Date Code Code Syst em Smoking History Never smoker (Never Smoked) 934735677 SNOMED CT Sex Female Medications Medication Start Date End Date Route Frequency Dose Code Code System Medication Instructions Home Meds Norvasc 5MG Oral Tablet 07/20/2014 Unknown ORAL EVERY DAY 5 MILLIGRAMS 172053 RxNorm OR AL 5 MILLIGRAMS ORAL EVERY DAY Hyzaar 25MG-100MG Oral Tablet 07/20/2014 Unknown ORAL EVERY DAY 1 unit(s) 649466 RxNorm ORAL 1 EACH ORAL EVERY DAY Crestor 20MG Oral Tablet 07/20/2014 Unknown ORAL At Bedtime 20 MILLIGRAMS 679349 RxNorm ORAL 20 MILLIGRAMS ORAL At Bedtime Coreg 25MG Oral Tablet 07/20/2014 Unknown ORAL EVERY DAY 25 MILLIGRAMS RxNorm O RAL 25 MILLIGRAMS ORAL EVERY DAY metFORMIN HCl 500MG Oral Tablet 07/20/2014 Unknown ORAL Two times a day 500 MILLIGRAMS 048957 RxNorm ORAL 500 MILLIGRAMS ORAL Two times a day Vitamin D3 1000IU Oral Tablet 07/20/2014 Unknown ORAL Two times a day 1000 INTERNATIONAL UNITS 716353 RxNorm ORAL 1000 INTERNATIONAL UNITS ORAL Two times a day Calcium Carb 500MG Oral Tablet 07/20/2014 Unknown ORAL Three times a day 500 MILLIGRAMS 943010 RxNorm ORAL 500 MILLIGRAMS ORAL Three times a day Aspi-Cor 81MG Oral Tablet, Enteric Coated 07/20/2014 Unknown ORAL EVERY DAY 81 MILLIGRAMS RxNorm ORAL 81 MILLIGRAMS ORAL EVERY DAY Synthroid 0.1MG Oral Tablet 07/20/2014 Unknown ORAL BEFORE BREAKFAST 100 MICROGRAMS 813596 RxNorm ORAL 100 MICROGRAMS ORAL BEFORE BREAKFAST cloNIDine HCl 0.2MG Oral Tablet 08/09/2014 Unknown ORAL EVERY 12 HR PRN for HTN 0.2 MILLIGRAMS 530321 RxNorm ORAL 0.2 MILLIGRAMS ORAL EVERY 12 HR PRN for HTN Colace 100MG Oral Capsule, Liquid Filled 08/09/2014 Unknown ORAL EVERY 12 HRS PRN 100 MILLIGRAMS RxNorm ORAL 100 MILLIGRAMS ORAL EVERY 12 HRS PRN Prozac 40MG Oral Capsule 08/09/2014 Unknown ORAL EVERY DAY PRN 40 MILLIGRAMS RxNorm ORAL 40 MILLIGRAMS ORAL EVERY DAY PRN Polyethylen e Glycol 3350 17GM/1Dose Oral Powder for Solution 08/09/2014 Unknown ORAL EVERY DAY NEEDED 1 unit(s) 818316 RxNorm ORAL 1 EACH ORAL EVERY DAY NEEDED Nexium 40MG Oral Capsule, Delayed Release 08/20/2014 Unknown ORAL BEFORE BREAKFAST 40 MILLIGRAMS 536511 RxNorm ORAL 40 MILLIGRAMS ORAL BEFORE BREAKFAST Assessment You had the following problems:HYPOKALEMIANAUSEA AND VOMITINGDEHYDRATION Hospital Discharge Instructions Should you have any questions prior to discharge, please contact a member of your healthcare team. If you have left the hospital and have any questions, please contact your primary care physician. Reason For Referral No Data Found Problems Problem Start Date Resolved Date Status Code Code System HYPOKALEMIA active 91234445 SNOMED-C T NAUSEA AND VOMITING active 26577317 SNOMED-CT DEHYDRATION active 09792692 SNOMED-C T OTHER FRACTURE OF LEFT FEMUR 08/08/2014 resolved 55780248 SNOMED-CT Allergies and Adverse Reactions Allergy Substance Reaction Severity Start Date Concern Status Code Code System LATEX Rash (SNOMED-CT: 952465310) Mild Active LATEX Rash (SNOMED-CT: 693839587) Mild Active No Known Drug Allergies Mild Active 022609662 SNOMED-CT Plan of Treatment No Data Found Encounters Encounter Diagnosis Start Date Code Code Sys tem Encounter for screening mamm ogram for malignant neoplasm of breast 10/22/2023 SNOMED-CT Personal Care Team Section Performer Name Performer Role Active Date Inactive Da te Imaging Narrative Notes [facility] \TM00\12PI\LM03\RM80\DRAo\BM09\ \MRLo\ [address] [address] ---------NAME--------- NUMBER SEX AGE ADMIT DISC. XRAY# F/C TYPE ZEPEDA EMERITA Meyers [id number] F 73 10/22/23 10/22/23 91989 RB3 O/P DATE OF : 1950 M/R# [id number] #: [phone] \MRHx\ LOCATION: TRANSCRIBED: 10/23/23 6:44 >>3D DIG SCREENING MAMMO COMPLETED:10/22/23 14:09 ABBY [id number] {TEST REASON: SCREENING PHYSICIAN: ARIA RADIOLOGY REPORT ORDER DATE and TIME: 10/22/2023 1219 Screening bilateral 2-D mammography Screening bilateral 3-D breast tomography October 22, 2023 TECHNIQUE: Digital 2-D mammographic and 3-D tomographic examination of both breasts in MLO and CC projections compared with previous studies dated 02/07/2022 and 02/09/2020. Study reviewed with the aid of CAD FINDINGS: Scattered fibroglandular densities present in both breasts are distributed in a generally unchanged pattern with a few scattered stable benign appearing variable sized nodular opacities present in both breasts. No one particular area worrisome enough to warrant additional imaging/intervention at this time. Largely ungrouped secretory type calcifications present bilateral. No worrisome grouped microcalcifications seen on either side. IMPRESSION: BI-RADS 2 benign findings grossly stable. Routine annual screening bilateral mammography recommended. Electronically signed by: Enzo Tyler MD 10/23/2023 06:44 AM CDT [facility] \TM00\12PI\LM03\RM80\DRAo\BM09\ \MRLo\ [place] [address] ---------NAME--------- NUMBER SEX AGE ADMIT DISC. XRAY# F/C TYPE KATELYN Meyers [id number] F 73 10/22/23 10/22/23 39372 RB3 O/P DATE OF : 1950 M/R# [id number] #: [phone] RM \MRHx\ LOCATION: TRANSCRIBED: 10/22/23 22:19 [facility] [id number] COMPLETED:10/22/23 14:09 ABBY [id number] {SPINE PROCED REASON: OSTEOPOROSIS PHYSICIAN: ARIA RADIOLOGY REPORT ORDER DATE and TIME: 10/22/2023 1220 Procedure: DEXA scan CLINICAL INDICATION: Postmenopausal osteoporosis screening PROCEDURE/TECHNIQUE: Scans of the L1-L4 levels and the right hip obtained using dual absorption technique. FINDINGS: Average lumbar spine bone density 1.634 gm/cm2. T-Score of 3.8 corresponds to a World Health Organization criteria of normal bone density. Change of -5.8% from 10/29/2017. Right femoral neck bone density 0.937 gm/cm2. T-Score of -0.7 corresponds to a World Health Organization criteria of normal bone density. Total right hip T score of -1.3 corresponds to osteopenia. Change of -9.0% in total right hip bone density from 10/29/2017. FRAX score Based on risk factors and right femoral neck bone density, fracture probabilities are as follows: Major osteoporotic fracture 13.8 %. Hip fracture 2.8 %. CONCLUSION: Lumbar spine normal bone density. Total left hip osteopenia. Fracture risk increased. Bone densities have diminished from prior study. FRAX score Major osteoporotic fracture 13.8 %. Hip fracture 2.8 %. The NQF recommends that FDA-approved medical therapies be considered in post-menopausal women and men age >/= 50 years with a: * Hip or vertebral fracture, or * T-score of </= -2.5 (osteoporosis) at the spine or hip, or * Ten-year fracture probability by FRAX of: * >/= 20% for major osteoporotic fractures or * >/= 3% for hip fractures All treatment decisions require clinical judgement and consideration of individual patient factors, including patient preferences, comorbidities, previous drug use, risk factors not captured in the FRAX registered model (e.g., frailty, falls, vitamin D deficiency, increased bone turnover, interval significant decline in bone density) and possible under- or over-estimation of fracture risk by FRAX. [id number] Electronically signed by: Irma Shah MD 10/22/2023 10:19 PM CDT
[2024-10-28 15:46] VITALS: BP 169/58; PULSE 72; RESP 18; TEMP 37.2; O2SAT 97
--- NOTE | 2024-10-28 16:56 | ED.UPPEXIN ---
HPI - Extremity Injury (Upper) General Chief Complaint: Extremity Injury, Upper Stated Complaint: finger Time Seen by Provider: 10/28/24 16:25 Source: patient and RN notes reviewed Mode of arrival: ambulatory Limitations: no limitations History of Present Illness HPI narrative: 74-year-old female presents Express Care complaining of a fall 1 week ago. Patient says she tripped and fell outside on the sidewalk. Patient reports she hit her head but denies any loss of consciousness. Patient does have all bruising around her left eye. She denies any headache, vision changes, blurry vision, dizziness, seizures, confusion, or any focal deficits. She does not take any anticoagulants. Patient is complaining of left pinky pain and swelling. Patient has been taking Tylenol for some pain relief. Patient denies any other injuries. Related Data Allergies Allergy/AdvReac Type Severity Reaction Status Date / Time latex Allergy Mild Rash Verified 10/28/24 15:47 Review of Systems Review of Systems: CONSTITUTIONAL: Denies fever, chills, or sweats. EYES: Denies visual changes, redness, or discharge. ENT: Denies rhinorrhea, congestion, sore throat, or otalgia. CARDIOVASCULAR: Denies chest pain, palpitations, lightheadedness, syncope or edema. RESPIRATORY: Denies cough or dyspnea. GASTROINTESTINAL: Denies abdominal pain, nausea, vomiting, or diarrhea. GENITOURINARY: Denies dysuria or hematuria. SKIN: Denies rash or itching. MUSCULOSKELETAL: Denies back pain, joint pain, or myalgia. Left pinky injury and bruising around left eye NEUROLOGIC: Denies headache, numbness,, dizziness, slurred speech or weakness. PSYCHIATRIC: Denies anxiety or depression. All other systems reviewed are negative, except as documented in HPI. PMFSH Comments At the time of my signature, I reviewed and agree with the nursing past medical, surgical, social, and family history. There is no relevant family history pertinent to the patient complaint. Exam Narrative: GENERAL: This is a well-nourished, well-developed adult, in no apparent distress. They are non ill-appearing, nontoxic appearing. HEAD: normocephalic, old bruising around left eye, no swelling or obvious deformity to face or scalp EYES: Sclera clear/white. Vision is grossly intact. Extraocular movements intact. Pupils PERRLA EARS: External ears normal, Hearing grossly intact. NOSE: External nose normal THROAT: Mucous membranes moist, posterior pharynx clear. NECK: Neck supple, non-tender without lymphadenopathy, masses or thyromegaly. No cervical point tenderness CARDIOVASCULAR: Regular rate and rhythm RESPIRATORY: Respiratory rate is normal, breathing nonlabored, no respiratory distress SKIN: warm, Dry, intact with no suspicious lesions or rash, good texture and turgor. NEURO: awake, alert, and oriented to person, place and time. There were no obvious focal neurologic abnormalities. Speech is clear. EXTREMITIES: Left pinky her swelling to the left pinky. There is old bruising that is healing. There is tenderness to palpation to the proximal and of the left pinky. Capillary refills less than 2 seconds. Limited range of motion due to pain and swelling. Radial pulse 2 +and palpable. Rest of left hand and fingers are unremarkable without injury. BACK: Nontender without deformity. Course Course Emergency Course: Patient is aware of diagnosis, understands and agrees to treatment plan. Anticipatory guidance given. Patient agrees to follow-up as directed and is aware of reasons to seek care at the emergency department. Portions of this record may have been created with voice recognition software Level of Care: Express Care Visit Vital Signs Vital signs: Vital Signs Temperature 99 F 10/28/24 15:46 Pulse Rate 72 10/28/24 15:46 Respiratory Rate 18 10/28/24 15:46 Blood Pressure 169/58 H 10/28/24 15:46 Pulse Oximetry 97 10/28/24 15:46 Oxygen Delivery Room Air 10/28/24 15:46 Temperature 99 F 10/28/24 15:46 Pulse Rate 72 10/28/24 15:46 Respiratory Rate 18 10/28/24 15:46 Blood Pressure 169/58 H 10/28/24 15:46 Pulse Oximetry 97 10/28/24 15:46 Oxygen Delivery Room Air 10/28/24 15:46 Reviewed Procedures Orthopedic Splinting/Casting Injury #1: Splinting/Casting Date: 10/28/24 Splinting/Casting Time: 16:25 Side: left Upper Extremity Immobilizer: finger (other) (Fifth digit) Pre-Formed: metal foam finger splint (With donald-taped) Pre-Procedure Neuro Vascular Exam: normal Post-Procedure Neuro Vascular Exam: normal Additional Comments: Patient tolerated procedure well MDM - Extremity Injury (Upper) MDM Narrative Medical decision making narrative: There is a fracture to the proximal base of the 5th phalanx. Minimally displaced and slight angulation. Patient was placed in a finger splint and donald tape. The fracture is proximally 1-week-old. Patient was advised to follow-up with orthopedist for further evaluation and management of his for her fracture. She is out of town her she is going to be here for a week instead she will try to find orthopedist around her before returning home. Discussed physical exam findings. Advised supportive measures and signs/symptoms to go to the ER. Pt is appropriate for outpt treatment and f/u. Differential Diagnosis Differential diagnosis: Likely other (Finger fracture, hand fracture, finger sprain,, head injury) Imaging Data Radiologist's impression: ITS Impressions Finger X-Ray 10/28/24 16:07 IMPRESSION: Fracture at the base of the proximal phalanx of the left thumb. ADDENDUM: 10/28/24 1282 The dictation system captured the impression chronic. The corrected impression is Impression: fracture at the base of the proximal phalanx of the little finger. Critical Care Time Critical Care Time Critical Care Time: No Discharge Plan Discharge Clinical Impression: Fracture of proximal phalanx of little finger Qualifiers: Encounter type: initial encounter Fracture type: closed Fracture alignment: nondisplaced Laterality: left Qualified Code(s): S62.647A - Nondisplaced fracture of proximal phalanx of left little finger, initial encounter for closed fracture Patient Disposition: Home Condition: Stable Instructions: Antibiotic Form, Finger Fracture (ED) Additional Instructions: Please follow-up with orthopedist. You do have a fracture of your left pinky. Please wear the splint at all times in donald tape it to your ring finger. You may take Tylenol or ibuprofen as needed for pain. You may apply ice to the area to help with swelling 20 minutes at a time. Any other concerns or change in condition please go to the ER immediately. Patient Language: Trinidadian Follow-up/Referrals: Pasha Busby MD [Physician] - Anmol Butler MD [Physician] - 3 Days UNKNOWN,DOCTOR [Primary Care Provider] - Time of Disposition: 16:36
== END 2024-10-28 16:40 | disposition home or self-care (01) ==
DX: S62.647A Nondisplaced fracture of proximal phalanx of left little finger, initial encounter for closed fracture (principal); W01.0XXA Fall on same level from slipping, tripping and stumbling without subsequent striking against object, initial encounter
CPT/HCPCS: 29130; 73140; 99204; G0463

== ENCOUNTER 2025-06-12 12:24 | Emergency (ER) | payer MEDICARE, SELFPAY ==
[2025-06-12] VITALS (9 sets, daily range): BP systolic 142–189; BP diastolic 58–87; PULSE 62–82; RESP 18–20; TEMP 36.4; O2SAT 95–98
--- NOTE | ~2025-06-12 | XR_ITS ---
Examination: XR chest 2V Clinical History: dizziness, sob Comparison: None Technique: PA and Lateral Findings: Cardiomediastinal silhouette normal size and configuration. Mild bibasilar atelectasis and/or scarring. No acute bony abnormality. Osteopenia. IMPRESSION: 1. No acute cardiopulmonary findings. Reviewed, dictated and finalized at location R. ERCIAL ILLUSTRATOR
--- NOTE | ~2025-06-12 | CT_ITS ---
EXAMINATION: CT brain wo shabnam, 06/12/2025 15:00 RELOCATION SERVICES SPECIALIST HISTORY: dizziness COMPARISON: No comparisons available. Technique: Axial images obtained of the brain without contrast. One or more of the following dose reduction techniques were used: automated exposure control, adjustment of the mA and/or kV according to patient size, use of iterative reconstruction technique. Findings: No acute infarct or parenchymal hemorrhage. No abnormal mass or mass effect. No midline shift. No extra-axial fluid collections. No hydrocephalus. Mastoid air cells unremarkable. Sinuses and orbits unremarkable. No acute fracture. No significant facial or scalp soft tissue swelling evident. No radiopaque foreign body is seen. Impression: 1.No acute intracranial abnormality. Reviewed, dictated and finalized at location P. CATION SERVICES SPECIALIST Impression: 1.No acute intracranial abnormality.
--- NOTE | 2025-06-12 12:37 | ECG_ITS ---
Test Date: 2025-06-12 12:43:43 Measurements Intervals Garner Rate: 70 P: 76 TN: 135 QRS: 63 QRSD: 93 T: 54 QT: 352 QTc: 382 Interpretive Statements SINUS RHYTHM NONSPECIFIC T-WAVE ABNORMALITY No previous ECG available for comparison Electronically Signed On 06-12-2025 18:56:20 WAISTLINE JOINER LOCKSTITCH by Margo Man M.D.
[2025-06-12 12:51] LABS: Hematocrit 42.7 % (37.0-47.0); Hemoglobin 14.2 g/dL (12.0-15.0); Immature Granulocyte Percent A 0.3 % (0-0.5); Lymphocytes Absolute Auto 1.63 K/mm3 (0.9-3.2); Mean Corpuscular HGB Conc 33.3 g/dl (32-36); Mean Corpuscular Hemoglobin 29.3 pg (26-34); Mean Corpuscular Volume 88.0 fl (80-100); Nucleated Red Blood Cells Absolute Auto 0.000 K/mm3 (0.0-0.012); Nucleated Red Blood Cells Perc 0.0 % (0.0-0.2); Platelet Count Result 286 k/mm3 (150-375); Red Blood Count 4.85 M/mm3 (4.2-5.4); White Blood Count 11.8 K/mm3 (4.5-10.0)
[2025-06-12 13:04] LABS: Alanine Aminotransferase 17 U/L (6-35); Albumin Level 4.1 g/dL (3.5-5.1); Alkaline Phosphatase 85 U/L (38-126); Anion Gap 8 mmol/L (4-12); Aspartate Amino Transferase 27 U/L (14-36); Bilirubin,Total 0.4 mg/dL (0.2-1.3); Blood Urea Nitrogen 11 mg/dL (7-17); Calcium 9.4 mg/dL (8.4-10.2); Carbon Dioxide 22 mmol/L (22-30); Chloride 107 mmol/L (98-107); Estimated CRCL calculation 87 ml/min; Estimated Glomerular Filt Rate > 60; Glucose 260 mg/dL (65-110); Potassium 3.9 mmol/L (3.4-5.0); Sodium 137 mmol/L (137-145); Total Protein 7.1 g/dL (6.3-8.2)
[2025-06-12] MEDS: HYDROGEN PEROXIDE 3% SOLN(*SP) 473 ML BOTTLE (13:21)
[2025-06-12] MEDS: MECLIZINE HCL 25 MG TABLET PO (13:21)
--- NOTE | 2025-06-12 15:25 | PC.NURSE ---
Dr. Franklin at bedside updating pt.
--- NOTE | 2025-06-12 16:08 | ED.GENADULT ---
HPI - General Adult General Chief complaint: Dizziness Stated complaint: high BP out of BP meds, dizzy, fatigue Time Seen by Provider: 06/12/25 12:53 History of Present Illness HPI narrative: Patient is a 75-year-old female who presents the ER with dizziness. Ongoing over last week. Worse when turning her head rolling over. Causes fatigue. She has also noted that her blood pressures been elevated more than usual. She lives in [place] and is currently up here visiting but she is transitioning off her care here because she is moving once a home that is being built is completed. She would also like some medication refills including her carvedilol and Abilify. Related Data Allergies Allergy/AdvReac Type Severity Reaction Status Date / Time latex Allergy Mild Rash Verified 06/12/25 12:27 Review of Systems Review of Systems: All systems reviewed & are unremarkable except as noted in HPI and below ENT: Reports system reviewed and no additional complaints, except as documented Cardiovascular: Cardiovascular: Reports no additional cardiovascular complaints Respiratory: Respiratory: Reports no additional respiratory complaints Neurologic: Reports system reviewed and no additional complaints, except as documented PMFSH Past Medical History Medical History (Updated 06/16/25 @ 13:01 by Franco Franklin MD) Hypertension Bipolar 1 disorder Exam Narrative: GENERAL: Well-appearing, well-nourished, and in no acute distress. HEAD: Normocephalic, atraumatic. ENT: Mucous membranes moist. Normal right TM and ear canal. Left ear canal normal after cerumen impaction removed. CHEST: Clear to auscultation. No respiratory distress. HEART: Regular rate and rhythm. Normal peripheral pulses.. EXTREMITIES: Normal range of motion. No edema. SKIN: Warm, dry, no rash. NEURO: Alert and oriented x3. PSYCH: Normal mood and affect. Course Course Emergency Course: Dizziness and hearing improving after removal of cerumen impaction in the left ear. She also had some meclizine. CT without evidence of stroke. Patient would like a refill of her carvedilol and abilify. D/c home. Vital Signs Vital signs: Vital Signs Temperature 97.6 F 06/12/25 12:28 Pulse Rate 68 06/12/25 12:28 Respiratory Rate 18 06/12/25 12:28 Blood Pressure 171/66 H 06/12/25 12:28 Pulse Oximetry 95 06/12/25 12:28 Oxygen Delivery Room Air 06/12/25 12:28 Temperature 97.6 F 06/12/25 12:28 Pulse Rate 73 06/12/25 16:38 Respiratory Rate 18 06/12/25 16:38 Blood Pressure 142/80 H 06/12/25 16:38 Pulse Oximetry 95 06/12/25 16:38 Oxygen Delivery Room Air 06/12/25 12:28 Procedures Ear Wax Removal Left Ear: Results: Re-examined: cerumen removed completely TM Examination: TM(s) intact, normal appearance Ear Canal Exam: atraumatic Patient Tolerated Procedure: well Complications: no problems Technique: ear canal irrigated and ear canal curetted Medical Decision Making Vital Signs Vital Signs: Vital Signs Temperature 97.6 F 06/12/25 12:28 Pulse Rate 68 06/12/25 12:28 Respiratory Rate 18 06/12/25 12:28 Blood Pressure 171/66 H 06/12/25 12:28 Pulse Oximetry 95 06/12/25 12:28 Oxygen Delivery Room Air 06/12/25 12:28 Temperature 97.6 F 06/12/25 12:28 Pulse Rate 73 06/12/25 16:38 Respiratory Rate 18 06/12/25 16:38 Blood Pressure 142/80 H 06/12/25 16:38 Pulse Oximetry 95 06/12/25 16:38 Oxygen Delivery Room Air 06/12/25 12:28 Lab Data Lab results reviewed: Yes I reviewed the patient's lab results. 06/12/25 12:45 06/12/25 12:45 Labs: Lab Results 06/12/25 Range/Units 12:45 WBC 11.8 H (4.5-10.0) K/mm3 RBC 4.85 (4.2-5.4) M/mm3 Hgb 14.2 (12.0-15.0) g/dL Hct 42.7 (37.0-47.0) % MCV 88.0 (80-100) fl MCH 29.3 (26-34) pg MCHC 33.3 (32-36) g/dl RDW 14.2 (11.5-14.5) % Plt Count 286 (150-375) k/mm3 MPV 9.9 (7.4-10.4) fl Immature Gran % (Auto) 0.3 (0-0.5) % Neut % (Auto) 77.9 H (45.5-73.1) % Lymph % (Auto) 13.9 L (18.3-44.2) % Tyrrell % (Auto) 5.9 (2.6-8.5) % Eos % (Auto) 1.4 (0-4.4) % Baso % (Auto) 0.6 (0.2-1.2) % Lymph # (Auto) 1.63 (0.9-3.2) K/mm3 Tyrrell # (Auto) 0.7 H (0.1-0.6) K/mm3 Eos # (Auto) 0.2 (0-0.3) K/mm3 Baso # (Auto) 0.1 (0.0-0.1) K/mm3 Abs Immat Gran (auto) 0.04 H (0.00-0.031) K/mm3 Absolute Neuts (auto) 9.2 H (1.3-6.7) K/mm3 Absolute Nucleated RBC 0.000 (0.0-0.012) K/mm3 Nucleated RBC % 0.0 (0.0-0.2) % Sodium 137 (137-145) mmol/L Potassium 3.9 (3.4-5.0) mmol/L Chloride 107 (98-107) mmol/L Carbon Dioxide 22 (22-30) mmol/L Anion Gap 8 (4-12) mmol/L BUN 11 (7-17) mg/dL Creatinine 0.54 L (0.7-1.0) mg/dL Estim Creat Clear Calc 87 ml/min Estimated GFR > 60 (59 - ) Glucose 260 H (65-110) mg/dL Calcium 9.4 (8.4-10.2) mg/dL Total Bilirubin 0.4 (0.2-1.3) mg/dL AST 27 (14-36) U/L ALT 17 (6-35) U/L Alkaline Phosphatase 85 (38-126) U/L Total Protein 7.1 (6.3-8.2) g/dL Albumin 4.1 (3.5-5.1) g/dL Imaging Data Radiologist's impression: ITS Impressions Chest X-Ray 06/12/25 14:02 IMPRESSION: 1. No acute cardiopulmonary findings. Head CT 06/12/25 15:20 Impression: 1.No acute intracranial abnormality. ECG Data EKG #1: ECG completion date: 06/12/25 ECG completion time: 12:43 EKG Interpretation: normal rate (70), sinus rhythm, normal QRS, normal QT and NL axis Discharge Plan Discharge Clinical Impression: Vertigo, Impacted cerumen Patient Disposition: Home Condition: Stable Instructions: Vertigo (ED) Additional Instructions: Return ER if you have chest pain shortness of breath, you can not keep down food water, you lose consciousness, you have additional concerns. Patient Language: Tajik Prescriptions: New meclizine 25 mg tablet 25 mg PO BID-TID PRN (Reason: dizziness) Qty: 14 0RF carvedilol 6.25 mg tablet 6.25 mg PO BID Qty: 14 0RF Rx Instructions: must administer with a meal/food aripiprazole [Abilify] 2 mg tablet 2 mg PO DAILY Qty: 7 0RF Follow-up/Referrals: PHYSICIAN,ELECTRICAL EQUIPMENT TESTER [Primary Care Provider, Internal Medicine] Alexander Tomas MD [Physician, Family Practice]
== END 2025-06-12 16:44 | disposition home or self-care (01) ==
PROVIDERS: Emergency Provider Emergency Medicine
DX: R42 Dizziness and giddiness (principal); H61.22 Impacted cerumen, left ear; I10 Essential (primary) hypertension; F31.9 Bipolar disorder, unspecified; Z79.899 Other long term (current) drug therapy
CPT/HCPCS: 36415; 69209; 70450; 71046; 80053; 85025; 93005; 99284; A9270